=== PATIENT | male | born 1940 | race Caucasian/White ===

== ENCOUNTER 2017-02-21 22:41 | Emergency (ER) | payer OTHER ==
[2017-02-21 22:49] VITALS: BP 135/70; BMI 27.6
--- NOTE | 2017-02-21 23:04 | DR.LACERAT ---
HPI - Time Seen Time seen: 23:00 - Primary Care Physician Primary Care Physician: hemant - HPI Comment HPI Comment: FELL AND HIT HEAD. ACCIDENTAL AFTER SLIPPING ON PIECE OF WOOD. HAVE PARKINSONS DISEASE. TREMORS PRESENT. WALK WITH A CANE. TD UTD. PATIENT TAKES ASA AND TRAMADOL FOR PAIN. - Complaints Chief Complaint Doctors Comments: FELL, LACERATION ABOVE LEFT EYE BROW. NO LOC. HAVE SEVERE HEADACHE. Chief Complaint:: pt fell over some board and hit his forehead laceration appox 5 to 6 cm over lt eye - Reviewed Nurses Notes Reviewed: Yes - Source History Provided: Patient - Mode of Arrival Mode of Arrival: Wheelchair - Timing Onset of Chief Complaint: 02/21/17 - Context Mechanism: Fall - Severity Pain Severity: Moderate Bleeding:: Uncontrolled - Associated Signs and Symptoms Associated Signs and Symptoms: None PMH - PMH Past Medical History: Yes Past Medical History: Diabetes, Hypertension, [place] Past Medical History Comment: parkinsons Past Surgical History: Yes Surgical History: Angioplasty/Stents - Family History History of Family Medical Conditions: Yes Family Medical History: [place], Hypertension - Social History Do you use any recreational Drugs:: No Lives With: Family Lives Where: Home - infectious screening In the last 2 months have you had wt loss of >10#?: NO Have you had fever, night sweats or hemotysis?: No Have you traveled outside the country in the last 6 months?: No Isolation: Standard ROS - Review of Systems Constitutional: No Symptoms Reported Eyes: negative: Eye Pain, Blurred Vision, Discharge, Photophobia ENTM: No Symptoms Reported Respiratoy: Non-Productive Cough Cardiovascular: No Symptoms Reported Gastrointestinal/Abdominal: No Symptoms Reported Genitourinary: No Symptoms Reported Neurological: Headache Musculoskeletal: Other (PAIN LEFT ORBIT AND FORE HEAD.) Integumentary: Other (5CM LACERATION LEFT FOREHEAD/ABOVE EYE BROW.) Hematologic/Lymphatic: Easy Bruising Endocrine: No Symptoms Reported All Other Systems: Reviewed and Negative PE - Vital Signs Vitals: Temperature 98 F Pulse Rate 86 Respiratory Rate 18 Blood Pressure [Left Arm] 131/65 Blood Pressure [Right Arm] 111/63 Blood Pressure 135/70 O2 Sat by Pulse Oximetry 98 - General Limitations: No Limitations General Appearance: Alert - Head Head Exam: Other (LACERATION 5CM ABOVE LEFT EYE BROW.) - Eyes Eye exam: Periorbital Swelling (LT), Periorbital Tenderness (LT) - ENT ENT Exam: Normal Exam, Normal External Ear Exam - Neck Neck Exam: Trachea Midline. negative: Tenderness - Chest Chest Inspection: Symmetric Chest Wall Rise - Respiratory Respiratory Exam: Normal Lung Sounds Bilat Respiratory Exam: Bilateral Rhonchi, Lower Rhonchi - Cardiovascular Cardiovascular Exam: Regular Rate, Normal Rhythm, Normal Heart Sounds - Abdominal Exam Abdominal Exam: Normal Bowel Sounds, Soft. negative: Tenderness - Extremities Extremities Exam: Normal Inspection - Back Back Exam: Paraspinal Tenderness - Neurologic Neurological Exam: Alert, Oriented X3, Other (TREMORS DUE TO PARKINSONS DISEASE. ) - Psychiatric Psychiatric Exam: Anxious - Skin Skin Exam: Erythema Type of Lesion: Laceration (5CM ABOVE LEFT EYE BROW.) Distribution: Face Description: Erythematous MDM - Additional Information Obtained Additional Information Obtained From: Family - Differential Diagnosis Differential Diagnosis: Abrasion, Contusion, Laceration (5CM ABOVE LEFT EYE BROW ), Fracture, Neurovascular Injury Course - Treatment Treatment: SEE ORDERS. LACERATION CLOSE IN ED. - Education/Counseling Education/Counseling: Patient, Family, Education Educated On: Diagnosis, Needs for Follow Up ROR - XRAY XRAY Interpreted by: Radiologist XRAY Findings: REPORT DISCUSS WITH PATIENT AND HIS FAMILY. - Diagnosis Discharge Problem: Laceration Laceration of forehead, left, complicated Qualifiers: Encounter type: initial encounter Qualified Code(s): S01.81XA - Laceration without foreign body of other part of head, initial encounter Facial contusion Qualifiers: Encounter type: initial encounter Qualified Code(s): S00.83XA - Contusion of other part of head, initial encounter Head trauma Qualifiers: Encounter type: initial encounter Qualified Code(s): S09.90XA - Unspecified injury of head, initial encounter - Discharge Plan Disposition: 01 HOME, SELF-CARE Condition: Stable - Follow ups/Referrals Follow ups/Referrals: NFD,None [Primary Care Provider] - 3 days - Instructions Instructions: Laceration Care, Adult, Head Injury, Adult, Facial or Scalp Contusion Additional Instructions: RETURN TO ED IF WORSE. SUTURE OUT IN 10 DAYS.
--- NOTE | 2017-02-21 23:15 | CT ---
CT brain without contrast Indication: Fall with laceration above left eye Comparison: 02/25/2016 Technique: Multiple axial images of the brain were obtained from the skull base to the vertex without administr ation of IV contrast. Coronal and sagittal images were also provided. Radiation dose reduction techniques were performed utilizing adjustment for MA/kVP based on patient body size. Findings: There is a moderate size laceration and hematoma within the left supraorbital frontal scalp. No subj acent fracture or globe injury identified. Stable radiodensities noted within the lateral aspect of the globe just posterior to the lens bilaterally. Moderate generalized cerebral atrophy. No acute intraparenchymal hemorrhage or mass can be identified. No extra-axial fluid collections ar e seen. No alteration in the attenuation of the brain parenchyma can be identified to suggest acute or subacute ischemic change. The ventricular system is symmetric and nondilated. IMPRESSION: 1. Moderate sized 34laceration and hematoma within the left supraorbital scalp without subjacent fr acture. 2. Generalized cerebral atrophy without acute intracranial abnormality. Reported By:
[2017-02-21] MEDS ORDERED: NEOSPORIN OINT ONE (23:54)
[2017-02-22] MEDS: NEOSPORIN OINT TOP ONE
== END 2017-02-22 00:11 | disposition home or self-care (01) ==
LOC: ER 22:41
PROC: 08Q1XZZ Repair Left Eye, External Approach (ICD-10-PCS; principal; 2017-02-21)
DX: S01.81XA Laceration without foreign body of other part of head, initial encounter (principal); S00.83XA Contusion of other part of head, initial encounter; S09.90XA Unspecified injury of head, initial encounter; W01.198A Fall on same level from slipping, tripping and stumbling with subsequent striking against other object, initial encounter; Y92.9 Unspecified place or not applicable
CPT/HCPCS: 12013; 70450; 99282

== ENCOUNTER 2017-12-31 16:40 | Emergency (ER) | payer OTHER, MEDICAID ==
[2017-12-31 16:49] VITALS: BMI 23.1
--- NOTE | 2017-12-31 17:45 | DR.GENAD ---
HPI - PCP Primary Care Physician: CHERYL CHOUDHARY - Complaint/Symptoms Chief Complaint Doctors Comments: Family member is complaining of patient having constipation, diarrhea with abdominal pain and cramping today. states he has been taking increased Lactulose and has been having watery stools. states he has not been eating recently and daughter is worried that he may be dehydrated. [place] He denies chest pain, SOB, vomiting or any recent trauma. Daughter states he has always had problems with is bowels and he takes 300mg colace three times daily and takes lactulose when he feels he is constipated. Patient presently drinking large cup liquids without problems. Patient denies abdominal pain presently. Chief Complaint:: PT C/O CONSTIPATION, DEHYDRATION AND DECREASED APPETTIE. PT'S FAMILY STATES PT HAS BEEN TAKING LACTALOSE FOR THE PAST FEW DAYS AND IS HAVING WATERY DIARRHEA, BUT STILL HAVING PAIN IN HIS RECTUM. - Nurses notes reviewed Nurses Notes Review: Yes - Source History Provided: Patient - Mode of Arrival Mode of Arrival: Ambulatory - Timing Onset of Chief Complaint: 12/31/17 Came on: Gradually - Duration Duration: Constant How lon Duration: Days - Location Location: lower abdominal pain - Severity Severity: Moderate - Modifying Factors Worsens:: nothing Improves:: nothing PMH - PMH Past Medical History: Yes Past Medical History: Diabetes, Hypertension, [place] Past Medical History Comment: PARKINSON, AFIB Past Surgical History: Yes Surgical History: Angioplasty/Stents - Family History History of Family Medical Conditions: Yes Family Medical History: MS, Hypertension - Social History Does any household member use tobacco: No Alcohol Use: None Do you use any recreational Drugs:: No Lives With: Family Lives Where: Home - infectious screening In the last 2 months have you had wt loss of >10#?: NO Have you had fever, night sweats or hemotysis?: No Have you traveled outside the country in the last 6 months?: No Isolation: Standard ROS - Review of Systems Constitutional: No Symptoms Reported, Weakness, Loss of Appetite. negative: See HPI, Chills, Diaphoresis, Fever, Malaise, Irritable, Fatigue, Other Eyes: No Symptoms Reported. negative: See HPI, Eye Pain, Blurred Vision, Tearing, Discharge, Photophobia, Diplopia, Other ENTM: No Symptoms Reported Respiratoy: No Symptoms Reported Cardiovascular: No Symptoms Reported Gastrointestinal/Abdominal: No Symptoms Reported, Abdominal Pain, Constipation, Diarrhea Genitourinary: No Symptoms Reported. negative: See HPI, Discharge, Dysuria, Frequency, Hematuria, Pain, Bleeding, Other Neurological: No Symptoms Reported Musculoskeletal: No Symptoms Reported Integumentary: No Symptoms Reported Hematologic/Lymphatic: No Symptoms Reported. negative: See HPI, Anemia, Blood Clots, Easy Bleeding, Easy Bruising, Swollen Glands, Lymphadenopathy, Other Endocrine: No Symptoms Reported, Decreased Appetite Psychiatric: No Symptoms Reported. negative: See HPI, Anxiety, Depression, Hallucinations, Excessive crying, Suicidal, Other PE - Vital Signs Vitals: Temperature 97.9 F Pulse Rate [Left] 91 Pulse Rate 105 Respiratory Rate 20 Blood Pressure [Left Arm] 143/65 Blood Pressure [Right Arm] 111/63 Blood Pressure 118/92 O2 Sat by Pulse Oximetry 98 - General Limitations: No Limitations General Appearance: Alert, In No Apparent Distress, Cachectic - Head Head Exam: Normal Inspection, Atraumatic, Normocephalic - Eyes Eye exam: Normal Appearance, PERRL, EOMI. negative: Scleral Icterus, Conjunctival Injection, Nystagmus, Miosis, Mydrasis, Periorbital Swelling, Periorbital Tenderness, Other - ENT ENT Exam: Normal Exam, Normal Oropharynx, Normal External Ear Exam, Mucous Membranes Moist, TM's Normal Bilaterally External Ear Exam: Normal External Inspection TM/Canal Exam: Bilateral Normal Nose Exam: Normal Nose Exam Mouth Exam: Normal Inspection. negative: Drooling, Trismus, Lip Swelling, Tongue Elevation, Tongue Swelling, Laceration, Other Throat Exam: Normal Inspection. negative: Tonsillar Erythema, Tonsillomegaly, Tonsillar Exudate, R Peritonsillar Mass, L Peritonsillar Mass, Muffled Voice, Other - Neck Neck Exam: Normal Inspection, Full ROM, Trachea Midline. negative: Tenderness, Meningismus, Lymphadenopathy, Thyromegaly, Other - Chest Chest Inspection: Normal Inspection, Symmetric Chest Wall Rise - Respiratory Respiratory Exam: Normal Lung Sounds Bilat Respiratory Exam: Bilateral Clear to Auscultation - Cardiovascular Cardiovascular Exam: Regular Rate, Normal Rhythm, Normal Heart Sounds, Systolic Murmur. negative: Bradycardia, Tachycardia, Irregular Rhythm, Diastolic Murmur , Rubs, Gallop, Clicks, JVD, +S1, +S2, +S3, +S4, Other - Abdominal Exam Abdominal Exam: Normal Inspection, Normal Bowel Sounds, Soft, Tenderness ( suprapubic tenderness), Dimnished Bowel Sounds Abdominal Tenderness: Suprapubic, Mild - Extremities Extremities Exam: Normal Inspection, Full ROM, Tenderness, Normal Capillary Refill - Back Back Exam: Normal Inspection, Full ROM. negative: Tenderness, (R) CVA Tenderness, (L) CVA Tenderness, Muscle Spasm, Paraspinal Tenderness, Vertebral Tenderness, Rashes, (R) Sciatic Notch Tenderness, (L) Sciatic Notch Tendern, (R ) Straight Leg Raise, (L) Straight Leg Raise, Other - Neurologic Neurological Exam: Alert, Oriented X3, CN II-XII Intact, Reflexes Normal. negative: Normal Gait (gait not tested) - Psychiatric Psychiatric Exam: Normal Affect, Normal Mood - Skin Skin Exam: Warm, Dry, Intact, Normal Color ROR - Labs Reviewed Laboratory Results Reviewed?: Yes (all labs and x-ray results reviewed and discussed with patient) Result Diagrams: 12/31/17 17:50 12/31/17 17:50 Laboratory: WBC 12.7 X10^3/uL (3.6-10.0) H 12/31/17 17:50 RBC 3.91 X10^6/uL (4.7-6.0) L 12/31/17 17:50 Hgb 12.2 g/dL (13.5-18.0) L 12/31/17 17:50 Hct 35.8 % (42.0-54.0) L 12/31/17 17:50 MCV 91.5 fL (80.0-100.0) 12/31/17 17:50 MCH 31.2 pg (27.0-34.0) 12/31/17 17:50 MCHC 34.1 g/dL (33.0-35.0) 12/31/17 17:50 RDW 14.0 % (11.6-16.5) 12/31/17 17:50 Plt Count 205 X10^3/uL (150.0-450.0) 12/31/17 17:50 Plt Count Comment Adequate (ADEQUATE) 12/31/17 17:50 MPV 8.8 fL (7.4-11.0) 12/31/17 17:50 Neut % 90.4 % (42.0-75.0) H 12/31/17 17:50 Lymph % 4.7 % (21.0-51.0) L 12/31/17 17:50 [place] % 4.3 % (0.0-13.0) 12/31/17 17:50 Eos % 0.1 % (0.9-2.9) L 12/31/17 17:50 Baso % 0.5 % (0.2-1.0) 12/31/17 17:50 Neut # 11.5 x10^3/uL (2.2-4.8) H 12/31/17 17:50 Lymph # 0.6 X10^3/uL (1.3-2.9) L 12/31/17 17:50 [place] # 0.5 x10^3/uL (0.3-0.8) 12/31/17 17:50 Eos # 0.0 x10^3/uL (0.0-0.2) 12/31/17 17:50 Baso # 0.1 X10^3/uL (0.0-0.1) 12/31/17 17:50 Absolute Nucleated RBC 0.0 /100WBC 12/31/17 17:50 Total Counted 100 12/31/17 17:50 Neutrophils % (Manual) 86 % (39-76) H 12/31/17 17:50 Band Neutrophils % 1 % (0-10) 12/31/17 17:50 Lymphocytes % (Manual) 7 % (13-43) L 12/31/17 17:50 Monocytes % (Manual) 4 % (4-9) 12/31/17 17:50 Eosinophils % (Manual) 1 % (0-6) 12/31/17 17:50 Atypical Lymphocytes 1 12/31/17 17:50 Plt Morphology Comment Normal (NORMAL) 12/31/17 17:50 RBC Morphology Normal (NORMAL) 12/31/17 17:50 Sodium 139 mmol/L (136-145) 12/31/17 17:50 Corrected Sodium 140 mmol/L (136-145) 12/31/17 17:50 Potassium 3.9 mmol/L (3.5-5.1) 12/31/17 17:50 Chloride 102 mmol/L (98-107) 12/31/17 17:50 Carbon Dioxide 28.2 mmol/L (21-32) 12/31/17 17:50 BUN 14 mg/dL (7-18) 12/31/17 17:50 Creatinine 1.10 mg/dL (0.70-1.30) 12/31/17 17:50 Est GFR (MDRD) Af Amer > 60 (>60) 12/31/17 17:50 Est GFR (MDRD) Non-Af > 60 (>60) 12/31/17 17:50 Glucose 124 mg/dL (65-99) H 12/31/17 17:50 Calcium 9.1 mg/dL (8.5-10.1) 12/31/17 17:50 Corrected Calcium TNP 12/31/17 17:50 Total Bilirubin 0.70 mg/dL (0.2-1.0) 12/31/17 17:50 AST 17 Units/L (15-37) 12/31/17 17:50 ALT 10 Units/L (12-78) L 12/31/17 17:50 Alkaline Phosphatase 102 Units/L (46-116) 12/31/17 17:50 Total Protein 7.5 g/dL (6.4-8.2) 12/31/17 17:50 Albumin 3.6 g/dL (3.4-5.0) 12/31/17 17:50 Globulin 3.9 g/dL (2.5-4.5) 12/31/17 17:50 Albumin/Globulin Ratio 0.9 Ratio (1.1-2.1) L 12/31/17 17:50 Amylase 41 Units/L (25-115) 12/31/17 17:50 Lipase 89 Units/L (73-393) 12/31/17 17:50 - XRAY XRAY Interpreted by: Radiologist (CT abdomen and pelvis: NO acute intra- abdominal pelvic findings are identified. 14mm calcified splenic artery pseudoaneurysm) - EKG Rate: 96 [place]: Normal Rhythm: NSR Block: None Hypertrophy: None ST: Nonsp - Diagnosis Discharge Problem: Hyperglycemia, Diarrhea Abdominal pain Qualifiers: Abdominal location: generalized Qualified Code(s): R10.84 - Generalized abdominal pain - Discharge Plan Disposition: 01 HOME, SELF-CARE Condition: Stable - Follow ups/Referrals Follow ups/Referrals: MDMisc [Primary Care Provider] - 3 days - Instructions Instructions: Abdominal Pain, Adult, [id number], Hyperglycemia, [id number]
[2017-12-31 17:59] LABS: BASOPHILS # (AUTO) 0.1 X10^3/uL (0.0-0.1); BASOPHILS % (AUTO) 0.5 % (0.2-1.0); EOSINOPHILS % (AUTO) 0.1 % (0.9-2.9); HEMATOCRIT 35.8 % (42.0-54.0); HEMOGLOBIN 12.2 g/dL (13.5-18.0); LYMPHOCYTES # (AUTO) 0.6 X10^3/uL (1.3-2.9); LYMPHOCYTES % (AUTO) 4.7 % (21.0-51.0); MEAN CORPUSCULAR HEMOGLOBIN 31.2 pg (27.0-34.0); MEAN CORPUSCULAR HGB CONC 34.1 g/dL (33.0-35.0); MEAN CORPUSCULAR VOLUME 91.5 fL (80.0-100.0); MEAN PLATELET VOLUME 8.8 fL (7.4-11.0); MONOCYTES # (AUTO) 0.5 x10^3/uL (0.3-0.8); MONOCYTES % (AUTO) 4.3 % (0.0-13.0); NEUTROPHILS # (AUTO) 11.5 x10^3/uL (2.2-4.8); NEUTROPHILS % (AUTO) 90.4 % (42.0-75.0); PLATELET COUNT 205 X10^3/uL (150.0-450.0); RED BLOOD COUNT 3.91 X10^6/uL (4.7-6.0); WHITE BLOOD COUNT 12.7 X10^3/uL (3.6-10.0)
[2017-12-31 18:11] LABS: ALANINE AMINOTRANSFERASE 10 Units/L (12-78); ALBUMIN 3.6 g/dL (3.4-5.0); ALKALINE PHOSPHATASE 102 Units/L (46-116); AMYLASE 41 Units/L (25-115); ASPARTATE AMINO TRANSFERASE 17 Units/L (15-37); BLOOD UREA NITROGEN 14 mg/dL (7-18); CALCIUM 9.1 mg/dL (8.5-10.1); CARBON DIOXIDE 28.2 mmol/L (21-32); CHLORIDE 102 mmol/L (98-107); COR NA(FOR HYPERGLY) 140 mmol/L (136-145); LIPASE 89 Units/L (73-393); SODIUM 139 mmol/L (136-145); TOTAL PROTEIN 7.5 g/dL (6.4-8.2); eGFR BLACK RACES > 60 (>60); eGFR NON BLACK RACES > 60 (>60)
[2017-12-31 18:12] LABS: BAND NEUTROPHILS % 1 % (0-10)
[2017-12-31 18:13] LABS: PLATELET MORPHOLOGY COMMENT NORMAL (NORMAL)
--- NOTE | 2017-12-31 18:25 | CT ---
HISTORY: Abdominal pain with diarrhea Study: CT abdomen and pelvis without contrast Comparison: None Technique: Multiple axial images of the abdomen and pelvis were obtained from the lung bases to the pubic symphy sis without the administration of IV contrast. Findings: The visualized portions of the lung bases are unremarkable. The liver, spleen, pancreas, kidneys, an d adrenal glands are unremarkable in their noncontrast CT appearance. The gallbladder is unremarkable in its CT appearance. Atherosclerosis of the aorta is noted there appears to be a small calcified fo r 2 mm splenic artery pseudoaneurysm. No significant mesenteric lymphadenopathy or stranding can be o bserved. No free fluid or free air is seen within the abdomen. No bowel wall thickening or bowel di latation is present. The colon is unremarkable. Specifically, there is no diverticulosis noted with in the sigmoid colon. Appendix is not seen but there are no secondary signs to suggest appendicitis. The urinary bladder is grossly unremarkable. The bony structures are grossly intact. IMPRESSION: 1. No acute intra-abdominal pelvic findings are identified. 2. 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 Reported By:
[2017-12-31 19:05] VITALS: BP 143/65
== END 2017-12-31 19:22 | disposition home or self-care (01) ==
LOC: ER 16:40
DX: R10.84 Generalized abdominal pain (principal); R19.7 Diarrhea, unspecified; R73.9 Hyperglycemia, unspecified
CPT/HCPCS: 36415; 74176; 80053; 82150; 83690; 85025; 93005; 93010; 99283; A4216

== ENCOUNTER 2019-04-06 14:26 | Inpatient (IN) ==
[2019-04-06] MEDS ORDERED: ZOFRAN INJ 4 MG VIAL IVP PRN (15:27)
--- NOTE | 2019-04-06 15:32 | DR.H&P ---
H&P - History & Physical for Day of: H&P Date: 04/06/19 - Chief Complaint Chief Complaint: weakness, dehydration, diarrhea, 8lbs weight loss in one week - History of Present Illness History of Present Illness: 79 WM DIRECT ADMIT PER DR BOB MAGANA OFFICE WITH CO DIFFUSE WEAKNESS, HOME HEALTH NURSE REPORTING 8LBS WEIGHT LOSS IN ONE WEEK, DEHYDRATION WITH HYPOTENSION AND TACHYCARDIA AND DIARRHEA. PT HAS PMH OF PARKINSON'S, CAD, BPH AND HAS BEEN UNDER THE CARE OF [facility]. NURSE REPORTS ABOUT 2 WEEK DECLINE, NOT EATING, DIARRHEA, LOW BP AND DIFFUSE WEAKNESS. DENIES FEVER, NO AMS. PT ADMITTED FOR TREATMENT OF SYMPTOMATIC DEHYRATION. - Past Medical History Past Medical History: Diabetes, Hypertension, [place] Additional Medical History: PARKINSONS - Past Surgical History Surgical History: Angioplasty/Stents - Family History Family Medical History: [place], Hypertension - Medications Home Medications: MS No Known Drug Allergy [No Known Drug Allergy] Allergy (Verified 02/25/16 21:18) - Review of Systems Constitutional: Weakness, Malaise Eyes: No Symptoms Reported ENT: No Symptoms Reported Respiratory: SOB with Excertion Cardiovascular: Edema Gastrointestinal: Diarrhea, Other (WEIGHT LOSS, ANOREXIA) Genitourinary: Other (DECREASED URINE OUTPT) Musculoskeletal: Back Pain, Leg Pain Skin: No Symptoms Reported Neurological: Weakness - Physical Exam Vital Signs: Blood Pressure [Left Arm] 143/65 Blood Pressure [Right Arm] 111/63 Blood Pressure 143/65 Respiratory: RLL Diminished, LLL Diminished Cardiovascular: Tachycardia, Edema : Normal Auscultation: Bowel Sounds: Normal Palpation: Normal Tenderness: Normal Skin: Decreased Turgur Musculoskeletal: Right, Left, Back:Lumbar, Motor Deficit, Sensory Deficit Psychiatric: Depression Mood Description: Calm, Depressed Speech Pattern: Clear, Appropriate - Assessment/Plan (1) Weakness Status: Acute Plan: ADMIT, CT HEAD ON ADMISSION. CE AND EKG, CXR. BLOOD AND URINE CULTURES, STOOL STUDIES. IV HYDRATION, STRICT I & OS. PT AND RESP CONSULT, SUPPLEMENTAL O2 (2) Diarrhea Status: Acute (3) Dehydration with hyponatremia Status: Acute (4) CHF (congestive heart failure) Status: Chronic (5) History of [place] (myocardial infarction) Status: Chronic (6) Hypertension Status: Chronic (7) Parkinson disease Status: Chronic - Allergies Allergies/Adverse Reactions: Allergies Allergy/AdvReac Type Severity Reaction Status Date / Time MS No Known Drug Allergy Allergy Verified 02/25/16 21:18 [No Known Drug Allergy]
[2019-04-06] MEDS ORDERED: NS 1000 ML 1,000 ML IV SCH (16:00)
[2019-04-06 16:27] LABS: BASOPHILS % (AUTO) 0.3 % (0.2-1.0); EOSINOPHILS % (AUTO) 0.2 % (0.9-2.9); HEMATOCRIT 35.3 % (42.0-54.0); HEMOGLOBIN 11.8 g/dL (13.5-18.0); LYMPHOCYTES # (AUTO) 0.7 X10^3/uL (1.3-2.9); MEAN CORPUSCULAR HEMOGLOBIN 31.8 pg (27.0-34.0); MEAN CORPUSCULAR HGB CONC 33.4 g/dL (33.0-35.0); MEAN CORPUSCULAR VOLUME 95.4 fL (80.0-100.0); MEAN PLATELET VOLUME 8.3 fL (7.4-11.0); MONOCYTES # (AUTO) 1.1 x10^3/uL (0.3-0.8); MONOCYTES % (AUTO) 8.1 % (0.0-13.0); NEUTROPHILS # (AUTO) 11.3 x10^3/uL (2.2-4.8); NEUTROPHILS % (AUTO) 86.4 % (42.0-75.0); PLATELET COUNT 236 X10^3/uL (150.0-450.0); RED CELL DISTRIBUTION WIDTH 13.4 % (11.6-16.5); WHITE BLOOD COUNT 13.1 X10^3/uL (3.6-10.0)
--- NOTE | 2019-04-06 16:40 | RAD ---
HISTORY: Shortness of breath Study: Single view chest Comparison:None Findings: Lungs are mildly hyperinflated. No infiltrate, effusion or pneumothorax identified. The cardiac and mediastinal contours are within normal limits. The soft tissues are unremarkable. IMPRESSION: 1. No acute cardiopulmonary abnormality. Reported By:
--- NOTE | 2019-04-06 16:43 | CT ---
HISTORY: Dizziness Study: CT brain without contrast Comparison: 02/21/2017 Technique: Multiple axial images of the brain were obtained without administration of IV contrast. Dose reduction techniques including Automated Exposure Control (AEC) and adjustment of mA and kV were utilized. Findings: There is cerebral volume loss and nonspecific white matter hypoattenuation likely related to moderate to advanced chronic microvascular ischemic changes. No evidence of acute hemorrhage, midline shift, mass effect or abnormal extra-axial fluid collection. The ventricular system is symmetric and nondilated. The soft tissues and osseous structures are unremarkable. The visualized paranasal sinuses are clear. IMPRESSION: 1. Cerebral volume loss and nonspecific white matter changes likely related to moderate to advanced chronic microvascular disease. No acute intracranial abnormality is identified Reported By:
[2019-04-06 16:44] LABS: BLOOD UREA NITROGEN 23 mg/dL (7-18); CALCIUM 9.6 mg/dL (8.5-10.1); CARBON DIOXIDE 27.7 mmol/L (21-32); CHLORIDE 100 mmol/L (98-107); CREATININE 1.23 mg/dL (0.70-1.30); SODIUM 139 mmol/L (136-145); TROPONIN I < 0.02 ng/mL (0-1.5); eGFR NON BLACK RACES > 60 (>60)
[2019-04-06 16:48] LABS: ALANINE AMINOTRANSFERASE 6 Units/L (12-78); ALBUMIN 4.1 g/dL (3.4-5.0); ALKALINE PHOSPHATASE 91 Units/L (46-116); ASPARTATE AMINO TRANSFERASE 13 Units/L (15-37); CKMB % 1.8 % (<4); CREATINE KINASE 111 Units/L (39-308); MAGNESIUM 2.2 mg/dL (1.7-2.9); TOTAL PROTEIN 7.7 g/dL (6.4-8.2)
[2019-04-06] MEDS: PROTONIX INJ 40 MG VIAL IVP SCH (17:00)
[2019-04-06] MEDS: SOLU-Medrol 40 MG VIAL IVP SCH ×2 (17:02→21:27)
[2019-04-06 17:10] LABS: IRON 19 ug/dL (50-175)
[2019-04-06 17:34] VITALS: BMI 19.0
[2019-04-06] MEDS: ROCEPHIN VIAL 1 GRAM IVP SCH (21:26)
[2019-04-06] MEDS: NS 1000 ML 1,000 ML IV SCH (21:27)
[2019-04-06 23:51] LABS: BILIRUBIN,URINE NEGATIVE (NEGATIVE); BLOOD/HEMOGLOBIN,URINE 4+ (NEGATIVE); GLUCOSE, URINE NEGATIVE (NEGATIVE); KETONES,URINE NEGATIVE (NEGATIVE); LEUKOCYTE ESTERASE ,URINE NEGATIVE (NEGATIVE); NITRITES,URINE NEGATIVE (NEGATIVE); PROTEIN,URINE NEGATIVE (NEGATIVE); UROBILINOGEN,URINE NORMAL (NORMAL)
[2019-04-07 00:13] LABS: APPEARANCE,URINE CLEAR (CLEAR); BACTERIA,URINE NEGATIVE /HPF (NEGATIVE); COLOR,URINE YELLOW (YELLOW); SQUAMOUS EPITHELIAL CELL,UR RARE /HPF (NEGATIVE)
[2019-04-07 00:14] LABS: AMORPHOUS SEDIMENT,UR 1+ /HPF (NEGATIVE)
[2019-04-07] MEDS: SOLU-Medrol 40 MG VIAL IVP SCH (05:07)
[2019-04-07 06:23] LABS: BASOPHILS % (AUTO) 0.2 % (0.2-1.0); HEMATOCRIT 33.5 % (42.0-54.0); HEMOGLOBIN 11.3 g/dL (13.5-18.0); LYMPHOCYTES # (AUTO) 0.4 X10^3/uL (1.3-2.9); LYMPHOCYTES % (AUTO) 3.2 % (21.0-51.0); MEAN CORPUSCULAR HGB CONC 33.7 g/dL (33.0-35.0); MEAN CORPUSCULAR VOLUME 94.8 fL (80.0-100.0); MEAN PLATELET VOLUME 8.9 fL (7.4-11.0); MONOCYTES # (AUTO) 0.3 x10^3/uL (0.3-0.8); MONOCYTES % (AUTO) 2.3 % (0.0-13.0); NEUTROPHILS # (AUTO) 12.5 x10^3/uL (2.2-4.8); NEUTROPHILS % (AUTO) 94.3 % (42.0-75.0); PLATELET COUNT 202 X10^3/uL (150.0-450.0); RED BLOOD COUNT 3.54 X10^6/uL (4.7-6.0); RED CELL DISTRIBUTION WIDTH 13.7 % (11.6-16.5); WHITE BLOOD COUNT 13.3 X10^3/uL (3.6-10.0)
[2019-04-07 06:29] LABS: ALBUMIN 3.3 g/dL (3.4-5.0); ALKALINE PHOSPHATASE 75 Units/L (46-116); ASPARTATE AMINO TRANSFERASE 14 Units/L (15-37); BLOOD UREA NITROGEN 17 mg/dL (7-18); CHLORIDE 104 mmol/L (98-107); COR CA(FOR HYPOALB) 9.6 mg/dL (8.5-10.1); COR NA(FOR HYPERGLY) 140 mmol/L (136-145); SODIUM 139 mmol/L (136-145); TOTAL PROTEIN 6.6 g/dL (6.4-8.2); eGFR NON BLACK RACES > 60 (>60)
[2019-04-07 06:41] LABS: ALANINE AMINOTRANSFERASE < 6 Units/L (12-78)
[2019-04-07 06:58] LABS: BAND NEUTROPHILS % 1 % (0-10); PLATELET MORPHOLOGY COMMENT NORMAL (NORMAL)
[2019-04-07] MEDS ORDERED: PHARMACY CONSULT - DOSE _____ XX SCH (07:00)
[2019-04-07] MEDS: PROTONIX INJ 40 MG VIAL IVP SCH (08:30)
[2019-04-07] MEDS: ROCEPHIN VIAL 1 GRAM IVP SCH (08:33)
[2019-04-07] MEDS: NS 1000 ML 1,000 ML IV SCH ×2 (08:33→10:15)
[2019-04-07] MEDS ORDERED: DEXFERRUM or INFED 25 MG in NS 100 ML IV 100 ML IV NR (10:00)
[2019-04-07] MEDS ORDERED: DEXFERRUM or INFED 975 MG in NS 500 ML IV 500 ML IV NR (11:00)
[2019-04-07] MEDS ORDERED: AMANTADINE HCL 100 MG CAP PO SCH (11:00)
[2019-04-07] MEDS ORDERED: NS 500 ML IV 0 ML ONE (11:26)
[2019-04-07] MEDS: FLAGYL IV PREMIX 500 MG BAG 500 MG/100 ML BAG IV SCH ×3 (11:30→20:40)
[2019-04-07] MEDS: BUTT CREAM (COMPOUND) TOP PRN ×3 (11:31→21:40)
[2019-04-07] MEDS: NEURONTIN CAP 300 MG PO SCH ×3 (11:34→22:00)
[2019-04-07] MEDS: ASPIRIN 81 MG CHEWTAB PO SCH (11:34)
[2019-04-07 11:35] LABS: STOOL FOR WBC POSITIVE (NEGATIVE)
[2019-04-07] MEDS: SINEMET (PLAIN) 25/250 MG PO SCH ×3 (11:35→22:00)
[2019-04-07] MEDS: PATIENT'S HOME MEDICATION PO SCH ×5 (11:36→20:44)
[2019-04-07] MEDS ORDERED: NS 500 ML IV 500 ML IV SCH (12:00)
[2019-04-07] MEDS: SINEMET CR 50/200 MG PO SCH (20:42)
[2019-04-07] MEDS: CIPRO IV 400 MG PREMIX* 400 MG/200 ML IV.SOLN. IV SCH (22:00)
[2019-04-08] MEDS: NS 1000 ML 1,000 ML IV SCH ×2 (02:31→15:30)
[2019-04-08] MEDS: FLAGYL IV PREMIX 500 MG BAG 500 MG/100 ML BAG IV SCH ×4 (02:31→20:46)
[2019-04-08] MEDS ORDERED: ULTRAM ONE (04:28)
[2019-04-08] MEDS: ULTRAM PO PRN (04:33)
[2019-04-08] MEDS: NEURONTIN CAP 300 MG PO SCH ×3 (05:00→21:32)
[2019-04-08] MEDS: SINEMET (PLAIN) 25/250 MG PO SCH ×3 (05:47→21:32)
[2019-04-08 06:11] LABS: BASOPHILS % (AUTO) 0.3 % (0.2-1.0); EOSINOPHILS # (AUTO) 0.3 x10^3/uL (0.0-0.2); EOSINOPHILS % (AUTO) 2.5 % (0.9-2.9); HEMATOCRIT 31.4 % (42.0-54.0); HEMOGLOBIN 10.5 g/dL (13.5-18.0); LYMPHOCYTES # (AUTO) 1.1 X10^3/uL (1.3-2.9); MEAN CORPUSCULAR HEMOGLOBIN 31.9 pg (27.0-34.0); MEAN CORPUSCULAR HGB CONC 33.4 g/dL (33.0-35.0); MEAN CORPUSCULAR VOLUME 95.6 fL (80.0-100.0); MEAN PLATELET VOLUME 8.9 fL (7.4-11.0); MONOCYTES # (AUTO) 0.9 x10^3/uL (0.3-0.8); MONOCYTES % (AUTO) 8.1 % (0.0-13.0); NEUTROPHILS % (AUTO) 79.1 % (42.0-75.0); PLATELET COUNT 189 X10^3/uL (150.0-450.0); RED BLOOD COUNT 3.29 X10^6/uL (4.7-6.0); RED CELL DISTRIBUTION WIDTH 13.7 % (11.6-16.5); WHITE BLOOD COUNT 11.4 X10^3/uL (3.6-10.0)
[2019-04-08 06:32] LABS: ALANINE AMINOTRANSFERASE < 6 Units/L (12-78); ALBUMIN 2.7 g/dL (3.4-5.0); ALKALINE PHOSPHATASE 80 Units/L (46-116); ASPARTATE AMINO TRANSFERASE 13 Units/L (15-37); BLOOD UREA NITROGEN 14 mg/dL (7-18); CALCIUM 8.3 mg/dL (8.5-10.1); CARBON DIOXIDE 26.6 mmol/L (21-32); CHLORIDE 104 mmol/L (98-107); COR CA(FOR HYPOALB) 9.3 mg/dL (8.5-10.1); COR NA(FOR HYPERGLY) 137 mmol/L (136-145); CREATININE 0.79 mg/dL (0.70-1.30); SODIUM 137 mmol/L (136-145); TOTAL PROTEIN 5.7 g/dL (6.4-8.2); eGFR NON BLACK RACES > 60 (>60)
[2019-04-08] MEDS: ASPIRIN 81 MG CHEWTAB PO SCH (08:30)
[2019-04-08] MEDS: PROTONIX INJ 40 MG VIAL IVP SCH (08:31)
[2019-04-08] MEDS: ZANTAC PO SCH (08:31)
[2019-04-08] MEDS: PATIENT'S HOME MEDICATION PO SCH ×6 (08:31→20:48)
[2019-04-08] MEDS: CIPRO IV 400 MG PREMIX* 400 MG/200 ML IV.SOLN. IV SCH ×2 (09:53→21:29)
--- NOTE | 2019-04-08 12:12 | RAD ---
HISTORY: Constipation, abdominal cramping Study: KUB Comparison: CT scan of the abdomen and pelvis done 12/31/2017. Findings: A bladder catheter is present. There is a large amount of stool present throughout the colon. A 7.85 cm rectal fecal impaction is present. There is gaseous distention of small bowel present also. No bowel obstruction is seen. Lung bases are clear. No opaque stone is seen. Osseous structures are intact. IMPRESSION: Large amount of stool present throughout the colon. A 7.85 cm rectal fecal impaction is seen. No bowel obstruction is seen. Reported By:
[2019-04-08] MEDS: MILK OF MAGNESIA PO SCH (18:15)
[2019-04-08] MEDS: SINEMET CR 50/200 MG PO SCH (20:49)
[2019-04-09] MEDS: FLAGYL IV PREMIX 500 MG BAG 500 MG/100 ML BAG IV SCH ×4 (03:10→21:01)
[2019-04-09] MEDS: NS 1000 ML 1,000 ML IV SCH ×2 (05:38→18:02)
[2019-04-09] MEDS: NEURONTIN CAP 300 MG PO SCH ×3 (05:59→21:02)
[2019-04-09] MEDS: SINEMET (PLAIN) 25/250 MG PO SCH ×3 (06:00→21:01)
[2019-04-09 06:08] LABS: BASOPHILS % (AUTO) 0.5 % (0.2-1.0); EOSINOPHILS # (AUTO) 0.4 x10^3/uL (0.0-0.2); EOSINOPHILS % (AUTO) 5.8 % (0.9-2.9); HEMATOCRIT 33.2 % (42.0-54.0); HEMOGLOBIN 11.2 g/dL (13.5-18.0); MEAN CORPUSCULAR HEMOGLOBIN 31.9 pg (27.0-34.0); MEAN CORPUSCULAR HGB CONC 33.6 g/dL (33.0-35.0); MEAN CORPUSCULAR VOLUME 94.9 fL (80.0-100.0); MEAN PLATELET VOLUME 8.5 fL (7.4-11.0); MONOCYTES # (AUTO) 0.7 x10^3/uL (0.3-0.8); MONOCYTES % (AUTO) 10.7 % (0.0-13.0); NEUTROPHILS # (AUTO) 4.1 x10^3/uL (2.2-4.8); PLATELET COUNT 206 X10^3/uL (150.0-450.0); RED CELL DISTRIBUTION WIDTH 13.9 % (11.6-16.5); WHITE BLOOD COUNT 6.2 X10^3/uL (3.6-10.0)
[2019-04-09 06:22] LABS: ALANINE AMINOTRANSFERASE < 6 Units/L (12-78); ALBUMIN 2.7 g/dL (3.4-5.0); ALKALINE PHOSPHATASE 79 Units/L (46-116); BLOOD UREA NITROGEN 9 mg/dL (7-18); CALCIUM 8.7 mg/dL (8.5-10.1); CARBON DIOXIDE 32.2 mmol/L (21-32); CHLORIDE 104 mmol/L (98-107); COR CA(FOR HYPOALB) 9.7 mg/dL (8.5-10.1); CREATININE 0.82 mg/dL (0.70-1.30); SODIUM 141 mmol/L (136-145); TOTAL PROTEIN 5.8 g/dL (6.4-8.2); eGFR NON BLACK RACES > 60 (>60)
--- NOTE | 2019-04-09 06:33 | RAD ---
HISTORY: Abdominal pain Study: KUB Comparison: 04/08/2019 Findings: The abdominal gas pattern is nonspecific and nonobstructive. There is a large amount of stool throughout the colon. The previously noted fecal impaction is not well demonstrated. There is a rectal tube in place. No abnormal masses or abnormal calcifications are identified. The regional skeleton is intact. IMPRESSION: Large amount of stool throughout the colon suggestive of constipation The previously noted fecal impaction is no longer identified. Reported By:
[2019-04-09 06:42] LABS: ASPARTATE AMINO TRANSFERASE 14 Units/L (15-37)
[2019-04-09] MEDS: MILK OF MAGNESIA PO SCH (08:52)
[2019-04-09] MEDS: CIPRO IV 400 MG PREMIX* 400 MG/200 ML IV.SOLN. IV SCH ×2 (08:52→21:01)
[2019-04-09] MEDS: ASPIRIN 81 MG CHEWTAB PO SCH (08:52)
[2019-04-09] MEDS: COLACE CAP 100 MG PO PRN ×2 (08:52→21:01)
[2019-04-09] MEDS: PROTONIX INJ 40 MG VIAL IVP SCH (08:52)
[2019-04-09] MEDS: ZANTAC PO SCH (08:53)
[2019-04-09] MEDS: PATIENT'S HOME MEDICATION PO SCH ×6 (09:11→21:01)
[2019-04-09] MEDS ORDERED: PHARMACY CONSULT - DOSE _____ XX SCH (10:00)
[2019-04-09] MEDS: LOVENOX INJ 40 MG SYR SC SCH (11:03)
[2019-04-09] MEDS: SINEMET CR 50/200 MG PO SCH (21:02)
[2019-04-10] MEDS: ULTRAM PO PRN (01:55)
[2019-04-10] MEDS: FLAGYL IV PREMIX 500 MG BAG 500 MG/100 ML BAG IV SCH ×4 (02:11→20:42)
[2019-04-10] MEDS: NEURONTIN CAP 300 MG PO SCH ×3 (05:33→21:28)
[2019-04-10] MEDS: SINEMET (PLAIN) 25/250 MG PO SCH ×3 (05:34→21:28)
[2019-04-10 05:45] LABS: BASOPHILS % (AUTO) 0.5 % (0.2-1.0); EOSINOPHILS # (AUTO) 0.3 x10^3/uL (0.0-0.2); EOSINOPHILS % (AUTO) 3.7 % (0.9-2.9); HEMATOCRIT 34.3 % (42.0-54.0); HEMOGLOBIN 11.4 g/dL (13.5-18.0); LYMPHOCYTES # (AUTO) 0.7 X10^3/uL (1.3-2.9); MEAN CORPUSCULAR HEMOGLOBIN 32.2 pg (27.0-34.0); MEAN CORPUSCULAR HGB CONC 33.3 g/dL (33.0-35.0); MEAN CORPUSCULAR VOLUME 96.7 fL (80.0-100.0); MEAN PLATELET VOLUME 8.8 fL (7.4-11.0); MONOCYTES # (AUTO) 0.8 x10^3/uL (0.3-0.8); MONOCYTES % (AUTO) 10.6 % (0.0-13.0); NEUTROPHILS # (AUTO) 5.5 x10^3/uL (2.2-4.8); NEUTROPHILS % (AUTO) 75.2 % (42.0-75.0); PLATELET COUNT 222 X10^3/uL (150.0-450.0); RED BLOOD COUNT 3.55 X10^6/uL (4.7-6.0); RED CELL DISTRIBUTION WIDTH 13.8 % (11.6-16.5); WHITE BLOOD COUNT 7.3 X10^3/uL (3.6-10.0)
[2019-04-10 05:58] LABS: ALANINE AMINOTRANSFERASE < 6 Units/L (12-78); ALBUMIN 2.7 g/dL (3.4-5.0); ALKALINE PHOSPHATASE 81 Units/L (46-116); ASPARTATE AMINO TRANSFERASE 11 Units/L (15-37); BLOOD UREA NITROGEN 10 mg/dL (7-18); CALCIUM 8.5 mg/dL (8.5-10.1); CARBON DIOXIDE 30.1 mmol/L (21-32); CHLORIDE 102 mmol/L (98-107); COR CA(FOR HYPOALB) 9.5 mg/dL (8.5-10.1); COR NA(FOR HYPERGLY) 137 mmol/L (136-145); CREATININE 0.75 mg/dL (0.70-1.30); SODIUM 137 mmol/L (136-145); TOTAL PROTEIN 5.7 g/dL (6.4-8.2); eGFR NON BLACK RACES > 60 (>60)
[2019-04-10] MEDS: CIPRO IV 400 MG PREMIX* 400 MG/200 ML IV.SOLN. IV SCH ×2 (08:58→20:42)
[2019-04-10] MEDS: ASPIRIN 81 MG CHEWTAB PO SCH (08:58)
[2019-04-10] MEDS: PROTONIX INJ 40 MG VIAL IVP SCH (08:59)
[2019-04-10] MEDS: LOVENOX INJ 40 MG SYR SC SCH (08:59)
[2019-04-10] MEDS: ZANTAC PO SCH (09:00)
[2019-04-10] MEDS: MILK OF MAGNESIA PO SCH (09:01)
[2019-04-10] MEDS: NS 1000 ML 1,000 ML IV SCH ×3 (09:13→21:28)
[2019-04-10] MEDS: PATIENT'S HOME MEDICATION PO SCH ×6 (09:13→20:44)
--- NOTE | 2019-04-10 12:43 | PCM.PROG ---
Progress Note - Progress Note for Day of Date of Exam: 04/10/19 - Subjective Subjective: Mr. Gutierrez is a 79-year-old white male admitted on 04/06/19, with perfuse diarrhea, hypotension, and tachycardia. The patient was noted to have a positive C. diff colitis and H. Pylori. He is on PPI therapy, gentle IV hydration, Cipro, and Flagyl. The patient does appear to feel a little bit better this morning. Does continue to feel weak. Discussed rehab placement and patient is agreeable. - Past Medical Family Social History Past Med/Fam/Surg Hx: No changes since H&P Allergies: Allergies No Known Drug Allergies Allergy (Verified 04/06/19 17:06) - Review of Systems ROS: No change since H&P - Vital Signs and I&O's Vital Signs: Temperature 97.9 F Pulse Rate [Apical] 90 Pulse Rate 86 Respiratory Rate 16 Blood Pressure [Left Arm] 121/69 Blood Pressure [Right Arm] 106/58 Blood Pressure 125/69 O2 Sat by Pulse Oximetry 99 Intake and Output: Intake & Output 04/07/19 04/08/19 04/09/19 04/10/19 23:59 23:59 23:59 23:59 Intake Total 2838 / 2838 3230 / 3230 3790 / 3790 566 / 566 Output Total 1400 / 1400 3700 / 3700 3525 / 3525 1000 / 1000 Balance 1438 / 1438 -470 / -470 265 / 265 -434 / -434 - Physical Exam Oriented: Normal Eyes: Normal Ear: Normal Nose: Normal Throat: Normal Respiratory: Normal Cardiovascular: Normal, Tachycardia, Edema : Normal Auscultation: Bowel Sounds: Normal Palpation: Normal Tenderness: Normal Skin: Decreased [place] Musculoskeletal: Right, Left, Back:Lumbar, Motor Deficit, Sensory Deficit Psychiatric: Depression Mood Description: Calm Speech Pattern: Clear, Appropriate - Laboratory and Diagnostics Result Diagrams: 04/10/19 05:19 04/10/19 05: Labs: 04/07/19 10:47 Stool Stool Culture - Final 04/07/19 10:47 Stool - Final 04/06/19 23:22 Urine,Clean Catch Urine Culture - Final 04/06/19 16:15 Blood Blood Culture - Preliminary 04/06/19 16:15 Blood Blood Culture - Preliminary Laboratory WBC 7.3 X10^3/uL (3.6-10.0) 04/10/19 05:19 RBC 3.55 X10^6/uL (4.7-6.0) L 04/10/19 05:19 Hgb 11.4 g/dL (13.5-18.0) L 04/10/19 05:19 Hct 34.3 % (42.0-54.0) L 04/10/19 05:19 MCV 96.7 fL (80.0-100.0) 04/10/19 05:19 MCH 32.2 pg (27.0-34.0) 04/10/19 05:19 MCHC 33.3 g/dL (33.0-35.0) 04/10/19 05:19 RDW 13.8 % (11.6-16.5) 04/10/19 05:19 Plt Count 222 X10^3/uL (150.0-450.0) 04/10/19 05:19 Plt Count Comment Adequate (ADEQUATE) 04/07/19 05:34 MPV 8.8 fL (7.4-11.0) 04/10/19 05:19 Neut % (Auto) 75.2 % (42.0-75.0) H 04/10/19 05:19 Lymph % (Auto) 10.0 % (21.0-51.0) L 04/10/19 05:19 [place] % (Auto) 10.6 % (0.0-13.0) 04/10/19 05:19 Eos % (Auto) 3.7 % (0.9-2.9) H 04/10/19 05:19 Baso % (Auto) 0.5 % (0.2-1.0) 04/10/19 05:19 Neut # (Auto) 5.5 x10^3/uL (2.2-4.8) H 04/10/19 05:19 Lymph # (Auto) 0.7 X10^3/uL (1.3-2.9) L 04/10/19 05:19 [place] # (Auto) 0.8 x10^3/uL (0.3-0.8) 04/10/19 05:19 Eos # (Auto) 0.3 x10^3/uL (0.0-0.2) H 04/10/19 05:19 Baso # (Auto) 0.0 X10^3/uL (0.0-0.1) 04/10/19 05:19 Absolute Nucleated RBC 0.0 /100WBC 04/10/19 05:19 Total Counted 100 04/07/19 05:34 Neutrophils % (Manual) 90 % (39-76) H 04/07/19 05:34 Band Neutrophils % 1 % (0-10) 04/07/19 05:34 Lymphocytes % (Manual) 4 % (13-43) L 04/07/19 05:34 Monocytes % (Manual) 5 % (4-9) 04/07/19 05:34 Plt Morphology Comment Normal (NORMAL) 04/07/19 05:34 RBC Morphology Normal (NORMAL) 04/07/19 05:34 Sodium 137 mmol/L (136-145) 04/10/19 05:19 Corrected Sodium 137 mmol/L (136-145) 04/10/19 05:19 Potassium 4.2 mmol/L (3.5-5.1) 04/10/19 05:19 Chloride 102 mmol/L (98-107) 04/10/19 05:19 Carbon Dioxide 30.1 mmol/L (21-32) 04/10/19 05:19 BUN 10 mg/dL (7-18) 04/10/19 05:19 Creatinine 0.75 mg/dL (0.70-1.30) 04/10/19 05:19 Est GFR (MDRD) Af Amer > 60 (>60) 04/10/19 05:19 Est GFR (MDRD) Non-Af > 60 (>60) 04/10/19 05:19 Glucose 111 mg/dL (65-99) H 04/10/19 05:19 Calcium 8.5 mg/dL (8.5-10.1) 04/10/19 05:19 Corrected Calcium 9.5 mg/dL (8.5-10.1) 04/10/19 05:19 Magnesium 2.2 mg/dL (1.7-2.9) 04/06/19 16:15 Iron 19 ug/dL (50-175) L 04/06/19 16:15 Transferrin 185 mg/dL (202-364) L 04/06/19 16:15 Ferritin 538 ng/mL (26-388) H 04/06/19 16:15 Total Bilirubin 0.50 mg/dL (0.2-1.0) 04/10/19 05:19 AST 11 Units/L (15-37) L 04/10/19 05:19 ALT < 6 Units/L (12-78) L 04/10/19 05:19 Alkaline Phosphatase 81 Units/L (46-116) 04/10/19 05:19 Creatine Kinase 111 Units/L (39-308) 04/06/19 16:15 CK-MB (CK-2) 2.0 ng/mL (0-4.0) 04/06/19 16:15 CK/CKMB % Calc 1.8 % (<4) 04/06/19 16:15 Troponin I < 0.02 ng/mL (0-1.5) 04/06/19 16:15 Total Protein 5.7 g/dL (6.4-8.2) L 04/10/19 05:19 Albumin 2.7 g/dL (3.4-5.0) L 04/10/19 05:19 Globulin 3.0 g/dL (2.5-4.5) 04/10/19 05:19 Albumin/Globulin Ratio 0.9 Ratio (1.1-2.1) L 04/10/19 05:19 Vitamin B12 390 pg/mL (193-986) 04/06/19 16:15 Folate > 20.0 ng/mL (>8.6) 04/06/19 16:15 Specimen Type Catherized urine 04/06/19 23:26 Urine Color Yellow (YELLOW) 04/06/19 23:26 Urine Appearance Clear (CLEAR) 04/06/19 23: Urine pH 6.0 (5.0 - 8.0) 04/06/19 23: Ur Specific [place] 1.005 (1.000-1.030) 04/06/19 23:26 Urine Protein Negative (NEGATIVE) 04/06/19 23: Urine Glucose (UA) Negative (NEGATIVE) 04/06/19 23: Urine Ketones Negative (NEGATIVE) 04/06/19 23: Urine Occult Blood 4+ (NEGATIVE) 04/06/19 23: Urine Nitrite Negative (NEGATIVE) 04/06/19 23:26 Urine Bilirubin Negative (NEGATIVE) 04/06/19 23:26 Urine Urobilinogen Normal (NORMAL) 04/06/19 23:26 Ur Leukocyte Esterase Negative (NEGATIVE) 04/06/19 23:26 Urine RBC 3-5 /HPF (NONE SEEN) 04/06/19 23:26 Urine WBC None seen /HPF (NONE SEEN) 04/06/19 23:26 Ur Squamous Epith Cells Rare /HPF (NEGATIVE) 04/06/19 23:26 Amorphous Sediment 1+ /HPF (NEGATIVE) 04/06/19 23:26 Urine Bacteria Negative /HPF (NEGATIVE) 04/06/19 23:26 Ur Culture Indicated? Yes/culture set up 04/06/19 23:26 Stool Description 5g,brown,unformed 04/07/19 10:47 Stl Occult Blood (IFOB) Positive (NEGATIVE) A 04/07/19 10:47 Stool for White Cells Positive (NEGATIVE) A 04/07/19 10:47 Stl C. diff Tox B Gene Positive (NEGATIVE) A 04/07/19 10:47 Stl C. diff 027-NAP1-BI Negative (NEGATIVE) 04/07/19 10:47 Stool H. pylori Ag Positive (NEGATIVE) A 04/07/19 10:47 C. difficile Toxin A&B Negative (NEGATIVE) 04/07/19 10:47 Radiology Reviewed: Yes EKG Reviewed: Yes - Plan (1) C. difficile enteritis Status: Acute Plan: Continue antibiotics. Monitor Labs. (2) Weakness Status: Acute Plan: Continue physical therapy. Consult for rehab placement/swingbed. (3) Parkinson disease Status: Chronic Plan: Continue present meds. (4) Diarrhea Status: Acute Plan: Monitor Output. Continue treatment for C Diff.
[2019-04-10] MEDS: SINEMET CR 50/200 MG PO SCH (20:43)
[2019-04-11] MEDS: FLAGYL IV PREMIX 500 MG BAG 500 MG/100 ML BAG IV SCH ×4 (03:05→21:18)
[2019-04-11] MEDS: NEURONTIN CAP 300 MG PO SCH ×3 (05:53→21:19)
[2019-04-11] MEDS: SINEMET (PLAIN) 25/250 MG PO SCH ×3 (05:54→21:19)
[2019-04-11 06:05] LABS: BASOPHILS % (AUTO) 0.5 % (0.2-1.0); EOSINOPHILS # (AUTO) 0.4 x10^3/uL (0.0-0.2); EOSINOPHILS % (AUTO) 7.9 % (0.9-2.9); HEMATOCRIT 34.4 % (42.0-54.0); HEMOGLOBIN 11.7 g/dL (13.5-18.0); LYMPHOCYTES # (AUTO) 0.9 X10^3/uL (1.3-2.9); LYMPHOCYTES % (AUTO) 16.8 % (21.0-51.0); MEAN CORPUSCULAR HEMOGLOBIN 32.7 pg (27.0-34.0); MEAN CORPUSCULAR HGB CONC 33.9 g/dL (33.0-35.0); MEAN CORPUSCULAR VOLUME 96.4 fL (80.0-100.0); MEAN PLATELET VOLUME 8.8 fL (7.4-11.0); MONOCYTES # (AUTO) 0.6 x10^3/uL (0.3-0.8); MONOCYTES % (AUTO) 10.9 % (0.0-13.0); NEUTROPHILS # (AUTO) 3.4 x10^3/uL (2.2-4.8); NEUTROPHILS % (AUTO) 63.9 % (42.0-75.0); PLATELET COUNT 237 X10^3/uL (150.0-450.0); RED BLOOD COUNT 3.57 X10^6/uL (4.7-6.0); WHITE BLOOD COUNT 5.3 X10^3/uL (3.6-10.0)
[2019-04-11 06:27] LABS: ALANINE AMINOTRANSFERASE < 6 Units/L (12-78); ALBUMIN 2.7 g/dL (3.4-5.0); ALKALINE PHOSPHATASE 84 Units/L (46-116); ASPARTATE AMINO TRANSFERASE 19 Units/L (15-37); BLOOD UREA NITROGEN 13 mg/dL (7-18); CALCIUM 8.7 mg/dL (8.5-10.1); CARBON DIOXIDE 31.4 mmol/L (21-32); CHLORIDE 104 mmol/L (98-107); COR CA(FOR HYPOALB) 9.7 mg/dL (8.5-10.1); CREATININE 0.82 mg/dL (0.70-1.30); SODIUM 139 mmol/L (136-145); TOTAL PROTEIN 5.8 g/dL (6.4-8.2); eGFR NON BLACK RACES > 60 (>60)
[2019-04-11] MEDS: LOVENOX INJ 40 MG SYR SC SCH (09:37)
[2019-04-11] MEDS: ASPIRIN 81 MG CHEWTAB PO SCH (09:38)
[2019-04-11] MEDS: PROTONIX INJ 40 MG VIAL IVP SCH (09:38)
[2019-04-11] MEDS: ZANTAC PO SCH (09:39)
[2019-04-11] MEDS: MILK OF MAGNESIA PO SCH (09:40)
[2019-04-11] MEDS: CIPRO IV 400 MG PREMIX* 400 MG/200 ML IV.SOLN. IV SCH ×2 (09:40→21:18)
[2019-04-11] MEDS: PATIENT'S HOME MEDICATION PO SCH ×6 (09:41→21:20)
--- NOTE | 2019-04-11 11:41 | PCM.PROG ---
Progress Note - Progress Note for Day of Date of Exam: 04/11/19 - Subjective Subjective: Mr. Gutierrez is a 79-year-old white male admitted on 04/06/19, with perfuse diarrhea, hypotension, and tachycardia. The patient was noted to have a positive C. diff colitis and H. Pylori. He is on PPI therapy, gentle IV hydration, Cipro, and Flagyl. The patient does appear to feel a little bit better this morning. Does continue to feel weak. States he slept all day yesterday. States that he did not sleep much last night. Is agreeable for rehab placement. Denies any other complaints. - Past Medical Family Social History Past Med/Fam/Surg Hx: No changes since H&P Allergies: Allergies No Known Drug Allergies Allergy (Verified 04/06/19 17:06) - Review of Systems ROS: No change since H&P - Vital Signs and I&O's Vital Signs: Temperature 97.9 F Pulse Rate [Apical] 90 Pulse Rate 87 Respiratory Rate 16 Blood Pressure [Left Arm] 121/69 Blood Pressure [Right Arm] 106/58 Blood Pressure 118/62 O2 Sat by Pulse Oximetry 100 Intake and Output: Intake & Output 04/08/19 04/09/19 04/10/19 04/11/19 23:59 23:59 23:59 23:59 Intake Total 3230 / 3230 3790 / 3790 2512 / 2512 487 / 487 Output Total 3700 / 3700 3525 / 3525 4275 / 4275 650 / 650 Balance -470 / -470 265 / 265 -1763 / -1763 -163 / -163 - Physical Exam Oriented: Normal Eyes: Normal Ear: Normal Nose: Normal Throat: Normal Respiratory: Normal Cardiovascular: Normal, Tachycardia, Edema : Normal Auscultation: Bowel Sounds: Normal Palpation: Normal Tenderness: Normal Skin: Normal Musculoskeletal: Right, Left, Back:Lumbar, Motor Deficit, Sensory Deficit Psychiatric: Depression Mood Description: Calm Affect: Quiet Speech Pattern: Clear, Appropriate - Laboratory and Diagnostics Result Diagrams: 04/11/19 05:15 04/11/19 05:15 Labs: 04/07/19 10:47 Stool Stool Culture - Final 04/07/19 10:47 Stool - Final 04/06/19 23:22 Urine,Clean Catch Urine Culture - Final 04/06/19 16:15 Blood Blood Culture - Preliminary 04/06/19 16:15 Blood Blood Culture - Preliminary Laboratory WBC 5.3 X10^3/uL (3.6-10.0) 04/11/19 05:15 RBC 3.57 X10^6/uL (4.7-6.0) L 04/11/19 05:15 Hgb 11.7 g/dL (13.5-18.0) L 04/11/19 05:15 Hct 34.4 % (42.0-54.0) L 04/11/19 05:15 MCV 96.4 fL (80.0-100.0) 04/11/19 05:15 MCH 32.7 pg (27.0-34.0) 04/11/19 05:15 MCHC 33.9 g/dL (33.0-35.0) 04/11/19 05:15 RDW 14.0 % (11.6-16.5) 04/11/19 05:15 Plt Count 237 X10^3/uL (150.0-450.0) 04/11/19 05:15 Plt Count Comment Adequate (ADEQUATE) 04/07/19 05:34 MPV 8.8 fL (7.4-11.0) 04/11/19 05:15 Neut % (Auto) 63.9 % (42.0-75.0) 04/11/19 05:15 Lymph % (Auto) 16.8 % (21.0-51.0) L 04/11/19 05:15 [place] % (Auto) 10.9 % (0.0-13.0) 04/11/19 05:15 Eos % (Auto) 7.9 % (0.9-2.9) H 04/11/19 05:15 Baso % (Auto) 0.5 % (0.2-1.0) 04/11/19 05:15 Neut # (Auto) 3.4 x10^3/uL (2.2-4.8) 04/11/19 05:15 Lymph # (Auto) 0.9 X10^3/uL (1.3-2.9) L 04/11/19 05:15 [place] # (Auto) 0.6 x10^3/uL (0.3-0.8) 04/11/19 05:15 Eos # (Auto) 0.4 x10^3/uL (0.0-0.2) H 04/11/19 05:15 Baso # (Auto) 0.0 X10^3/uL (0.0-0.1) 04/11/19 05:15 Absolute Nucleated RBC 0.2 /100WBC 04/11/19 05:15 Total Counted 100 04/07/19 05:34 Neutrophils % (Manual) 90 % (39-76) H 04/07/19 05:34 Band Neutrophils % 1 % (0-10) 04/07/19 05:34 Lymphocytes % (Manual) 4 % (13-43) L 04/07/19 05:34 Monocytes % (Manual) 5 % (4-9) 04/07/19 05:34 Plt Morphology Comment Normal (NORMAL) 04/07/19 05:34 RBC Morphology Normal (NORMAL) 04/07/19 05:34 Sodium 139 mmol/L (136-145) 04/11/19 05:15 Corrected Sodium TNP 04/11/19 05:15 Potassium 4.4 mmol/L (3.5-5.1) 04/11/19 05:15 Chloride 104 mmol/L (98-107) 04/11/19 05:15 Carbon Dioxide 31.4 mmol/L (21-32) 04/11/19 05:15 BUN 13 mg/dL (7-18) 04/11/19 05:15 Creatinine 0.82 mg/dL (0.70-1.30) 04/11/19 05:15 Est GFR (MDRD) Af Amer > 60 (>60) 04/11/19 05:15 Est GFR (MDRD) Non-Af > 60 (>60) 04/11/19 05:15 Glucose 104 mg/dL (65-99) H 04/11/19 05:15 Calcium 8.7 mg/dL (8.5-10.1) 04/11/19 05:15 Corrected Calcium 9.7 mg/dL (8.5-10.1) 04/11/19 05:15 Magnesium 2.2 mg/dL (1.7-2.9) 04/06/19 16:15 Iron 19 ug/dL (50-175) L 04/06/19 16:15 Transferrin 185 mg/dL (202-364) L 04/06/19 16:15 Ferritin 538 ng/mL (26-388) H 04/06/19 16:15 Total Bilirubin 0.40 mg/dL (0.2-1.0) 04/11/19 05:15 AST 19 Units/L (15-37) 04/11/19 05:15 ALT < 6 Units/L (12-78) L 04/11/19 05:15 Alkaline Phosphatase 84 Units/L (46-116) 04/11/19 05:15 Creatine Kinase 111 Units/L (39-308) 04/06/19 16:15 CK-MB (CK-2) 2.0 ng/mL (0-4.0) 04/06/19 16:15 CK/CKMB % Calc 1.8 % (<4) 04/06/19 16:15 Troponin I < 0.02 ng/mL (0-1.5) 04/06/19 16:15 Total Protein 5.8 g/dL (6.4-8.2) L 04/11/19 05:15 Albumin 2.7 g/dL (3.4-5.0) L 04/11/19 05:15 Globulin 3.1 g/dL (2.5-4.5) 04/11/19 05:15 Albumin/Globulin Ratio 0.9 Ratio (1.1-2.1) L 04/11/19 05:15 Vitamin B12 390 pg/mL (193-986) 04/06/19 16:15 Folate > 20.0 ng/mL (>8.6) 04/06/19 16:15 Specimen Type Catherized urine 04/06/19 23:26 Urine Color Yellow (YELLOW) 04/06/19 23:26 Urine Appearance Clear (CLEAR) 04/06/19 23: Urine pH 6.0 (5.0 - 8.0) 04/06/19 23: Ur Specific [place] 1.005 (1.000-1.030) 04/06/19 23:26 Urine Protein Negative (NEGATIVE) 04/06/19 23: Urine Glucose (UA) Negative (NEGATIVE) 04/06/19 23: Urine Ketones Negative (NEGATIVE) 04/06/19 23: Urine Occult Blood 4+ (NEGATIVE) 04/06/19 23:26 Urine Nitrite Negative (NEGATIVE) 04/06/19 23:26 Urine Bilirubin Negative (NEGATIVE) 04/06/19 23:26 Urine Urobilinogen Normal (NORMAL) 04/06/19 23:26 Ur Leukocyte Esterase Negative (NEGATIVE) 04/06/19 23:26 Urine RBC 3-5 /HPF (NONE SEEN) 04/06/19 23:26 Urine WBC None seen /HPF (NONE SEEN) 04/06/19 23:26 Ur Squamous Epith Cells Rare /HPF (NEGATIVE) 04/06/19 23:26 Amorphous Sediment 1+ /HPF (NEGATIVE) 04/06/19 23:26 Urine Bacteria Negative /HPF (NEGATIVE) 04/06/19 23:26 Ur Culture Indicated? Yes/culture set up 04/06/19 23:26 Stool Description 5g,brown,unformed 04/07/19 10:47 Stl Occult Blood (IFOB) Positive (NEGATIVE) A 04/07/19 10:47 Stool for White Cells Positive (NEGATIVE) A 04/07/19 10:47 Stl C. diff Tox B Gene Positive (NEGATIVE) A 04/07/19 10:47 Stl C. diff 027-NAP1-BI Negative (NEGATIVE) 04/07/19 10:47 Stool H. pylori Ag Positive (NEGATIVE) A 04/07/19 10:47 C. difficile Toxin A&B Negative (NEGATIVE) 04/07/19 10:47 - Plan (1) C. difficile enteritis Status: Acute Plan: Continue antibiotics. Monitor Labs. (2) Weakness Status: Acute Plan: Continue physical therapy. Consult for rehab placement/swingbed. (3) Parkinson disease Status: Chronic Plan: Continue present meds. (4) Diarrhea Status: Acute Plan: Monitor Output. Continue treatment for C Diff.
[2019-04-11] MEDS: NS 1000 ML 1,000 ML IV SCH ×2 (12:14→21:19)
[2019-04-11] MEDS: SINEMET CR 50/200 MG PO SCH (21:19)
[2019-04-11] MEDS: COLACE CAP 100 MG PO PRN (21:19)
[2019-04-12] MEDS: FLAGYL IV PREMIX 500 MG BAG 500 MG/100 ML BAG IV SCH ×4 (04:00→21:25)
[2019-04-12] MEDS: NS 1000 ML 1,000 ML IV SCH ×3 (04:11→21:24)
[2019-04-12] MEDS: SINEMET (PLAIN) 25/250 MG PO SCH ×3 (05:42→21:26)
[2019-04-12] MEDS: NEURONTIN CAP 300 MG PO SCH (05:42)
[2019-04-12 06:27] LABS: BASOPHILS % (AUTO) 0.5 % (0.2-1.0); EOSINOPHILS # (AUTO) 0.4 x10^3/uL (0.0-0.2); EOSINOPHILS % (AUTO) 8.1 % (0.9-2.9); HEMATOCRIT 34.1 % (42.0-54.0); HEMOGLOBIN 11.5 g/dL (13.5-18.0); LYMPHOCYTES % (AUTO) 20.4 % (21.0-51.0); MEAN CORPUSCULAR HEMOGLOBIN 32.1 pg (27.0-34.0); MEAN CORPUSCULAR HGB CONC 33.7 g/dL (33.0-35.0); MEAN CORPUSCULAR VOLUME 95.4 fL (80.0-100.0); MEAN PLATELET VOLUME 8.4 fL (7.4-11.0); MONOCYTES # (AUTO) 0.5 x10^3/uL (0.3-0.8); MONOCYTES % (AUTO) 10.9 % (0.0-13.0); NEUTROPHILS # (AUTO) 2.9 x10^3/uL (2.2-4.8); NEUTROPHILS % (AUTO) 60.1 % (42.0-75.0); PLATELET COUNT 268 X10^3/uL (150.0-450.0); RED BLOOD COUNT 3.58 X10^6/uL (4.7-6.0); RED CELL DISTRIBUTION WIDTH 13.9 % (11.6-16.5); WHITE BLOOD COUNT 4.9 X10^3/uL (3.6-10.0)
[2019-04-12 06:43] LABS: ALANINE AMINOTRANSFERASE 9 Units/L (12-78); ALBUMIN 2.8 g/dL (3.4-5.0); ALKALINE PHOSPHATASE 85 Units/L (46-116); ASPARTATE AMINO TRANSFERASE 59 Units/L (15-37); BLOOD UREA NITROGEN 12 mg/dL (7-18); CALCIUM 9.1 mg/dL (8.5-10.1); CARBON DIOXIDE 31.8 mmol/L (21-32); CHLORIDE 104 mmol/L (98-107); COR CA(FOR HYPOALB) 10.1 mg/dL (8.5-10.1); CREATININE 0.85 mg/dL (0.70-1.30); SODIUM 138 mmol/L (136-145); eGFR NON BLACK RACES > 60 (>60)
[2019-04-12] MEDS: MILK OF MAGNESIA PO SCH (08:35)
[2019-04-12] MEDS: LOVENOX INJ 40 MG SYR SC SCH (08:35)
[2019-04-12] MEDS: CIPRO IV 400 MG PREMIX* 400 MG/200 ML IV.SOLN. IV SCH ×2 (08:37→20:08)
[2019-04-12] MEDS: PROTONIX INJ 40 MG VIAL IVP SCH (08:37)
[2019-04-12] MEDS: ASPIRIN 81 MG CHEWTAB PO SCH (08:37)
[2019-04-12] MEDS: ZANTAC PO SCH (08:37)
[2019-04-12] MEDS: PATIENT'S HOME MEDICATION PO SCH ×6 (08:39→21:27)
--- NOTE | 2019-04-12 12:18 | PCM.PROG ---
Progress Note - Progress Note for Day of Date of Exam: 04/12/19 - Subjective Subjective: Mr. Gutierrez is a 79-year-old white male admitted on 04/06/19, with perfuse diarrhea, hypotension, and tachycardia. The patient was noted to have a positive C. diff colitis and H. Pylori. He is on PPI therapy, gentle IV hydration, Cipro, and Flagyl. The patient does appear to feel a little bit better this morning. Does continue to feel weak. Did have orthostatic hypotension with BP after sitting on side of bed yesterday. - Past Medical Family Social History Past Med/Fam/Surg Hx: No changes since H&P Allergies: Allergies No Known Drug Allergies Allergy (Verified 04/06/19 17:06) - Review of Systems ROS: No change since H&P - Vital Signs and I&O's Vital Signs: Temperature 98.2 F Pulse Rate [Apical] 90 Pulse Rate 95 Respiratory Rate 14 Blood Pressure [Left Arm] 121/69 Blood Pressure [Right Arm] 106/58 Blood Pressure 118/58 O2 Sat by Pulse Oximetry 97 Intake and Output: Intake & Output 04/09/19 04/10/19 04/11/19 04/12/19 23:59 23:59 23:59 23:59 Intake Total 3790 / 3790 2512 / 2512 1537 / 1537 601 / 601 Output Total 3525 / 3525 4275 / 4275 4100 / 4100 850 / 850 Balance 265 / 265 -1763 / -1763 -2563 / -2563 -249 / -249 - Physical Exam Oriented: Normal Eyes: Normal Ear: Normal Nose: Normal Throat: Normal Respiratory: Normal Cardiovascular: Normal, Tachycardia, Edema : Normal Auscultation: Bowel Sounds: Normal Palpation: Normal Tenderness: Normal Skin: Normal Musculoskeletal: Right, Left, Back:Lumbar, Motor Deficit, Sensory Deficit Psychiatric: Depression Mood Description: Calm Affect: Quiet Speech Pattern: Clear, Appropriate - Laboratory and Diagnostics Result Diagrams: 04/12/19 05:31 04/12/19 05:31 Labs: 04/06/19 16:15 Blood Blood Culture - Final 04/06/19 16:15 Blood Blood Culture - Final 04/07/19 10:47 Stool Stool Culture - Final 04/07/19 10:47 Stool - Final 04/06/19 23:22 Urine,Clean Catch Urine Culture - Final Laboratory WBC 4.9 X10^3/uL (3.6-10.0) 04/12/19 05:31 RBC 3.58 X10^6/uL (4.7-6.0) L 04/12/19 05:31 Hgb 11.5 g/dL (13.5-18.0) L 04/12/19 05:31 Hct 34.1 % (42.0-54.0) L 04/12/19 05:31 MCV 95.4 fL (80.0-100.0) 04/12/19 05:31 MCH 32.1 pg (27.0-34.0) 04/12/19 05:31 MCHC 33.7 g/dL (33.0-35.0) 04/12/19 05:31 RDW 13.9 % (11.6-16.5) 04/12/19 05:31 Plt Count 268 X10^3/uL (150.0-450.0) 04/12/19 05:31 Plt Count Comment Adequate (ADEQUATE) 04/07/19 05:34 MPV 8.4 fL (7.4-11.0) 04/12/19 05:31 Neut % (Auto) 60.1 % (42.0-75.0) 04/12/19 05:31 Lymph % (Auto) 20.4 % (21.0-51.0) L 04/12/19 05:31 [place] % (Auto) 10.9 % (0.0-13.0) 04/12/19 05:31 Eos % (Auto) 8.1 % (0.9-2.9) H 04/12/19 05:31 Baso % (Auto) 0.5 % (0.2-1.0) 04/12/19 05:31 Neut # (Auto) 2.9 x10^3/uL (2.2-4.8) 04/12/19 05:31 Lymph # (Auto) 1.0 X10^3/uL (1.3-2.9) L 04/12/19 05:31 [place] # (Auto) 0.5 x10^3/uL (0.3-0.8) 04/12/19 05:31 Eos # (Auto) 0.4 x10^3/uL (0.0-0.2) H 04/12/19 05:31 Baso # (Auto) 0.0 X10^3/uL (0.0-0.1) 04/12/19 05:31 Absolute Nucleated RBC 0.1 /100WBC 04/12/19 05:31 Total Counted 100 04/07/19 05:34 Neutrophils % (Manual) 90 % (39-76) H 04/07/19 05:34 Band Neutrophils % 1 % (0-10) 04/07/19 05:34 Lymphocytes % (Manual) 4 % (13-43) L 04/07/19 05:34 Monocytes % (Manual) 5 % (4-9) 04/07/19 05:34 Plt Morphology Comment Normal (NORMAL) 04/07/19 05:34 RBC Morphology Normal (NORMAL) 04/07/19 05:34 Sodium 138 mmol/L (136-145) 04/12/19 05:31 Corrected Sodium TNP 04/12/19 05:31 Potassium 4.6 mmol/L (3.5-5.1) 04/12/19 05:31 Chloride 104 mmol/L (98-107) 04/12/19 05:31 Carbon Dioxide 31.8 mmol/L (21-32) 04/12/19 05:31 BUN 12 mg/dL (7-18) 04/12/19 05:31 Creatinine 0.85 mg/dL (0.70-1.30) 04/12/19 05:31 Est GFR (MDRD) Af Amer > 60 (>60) 04/12/19 05:31 Est GFR (MDRD) Non-Af > 60 (>60) 04/12/19 05:31 Glucose 107 mg/dL (65-99) H 04/12/19 05:31 Calcium 9.1 mg/dL (8.5-10.1) 04/12/19 05:31 Corrected Calcium 10.1 mg/dL (8.5-10.1) 04/12/19 05:31 Magnesium 2.2 mg/dL (1.7-2.9) 04/06/19 16:15 Iron 19 ug/dL (50-175) L 04/06/19 16:15 Transferrin 185 mg/dL (202-364) L 04/06/19 16:15 Ferritin 538 ng/mL (26-388) H 04/06/19 16:15 Total Bilirubin 0.40 mg/dL (0.2-1.0) 04/12/19 05:31 AST 59 Units/L (15-37) H 04/12/19 05:31 ALT 9 Units/L (12-78) L 04/12/19 05:31 Alkaline Phosphatase 85 Units/L (46-116) 04/12/19 05:31 Creatine Kinase 111 Units/L (39-308) 04/06/19 16:15 CK-MB (CK-2) 2.0 ng/mL (0-4.0) 04/06/19 16:15 CK/CKMB % Calc 1.8 % (<4) 04/06/19 16:15 Troponin I < 0.02 ng/mL (0-1.5) 04/06/19 16:15 Total Protein 6.0 g/dL (6.4-8.2) L 04/12/19 05:31 Albumin 2.8 g/dL (3.4-5.0) L 04/12/19 05:31 Globulin 3.2 g/dL (2.5-4.5) 04/12/19 05:31 Albumin/Globulin Ratio 0.9 Ratio (1.1-2.1) L 04/12/19 05:31 Vitamin B12 390 pg/mL (193-986) 04/06/19 16:15 Folate > 20.0 ng/mL (>8.6) 04/06/19 16:15 Specimen Type Catherized urine 04/06/19 23:26 Urine Color Yellow (YELLOW) 04/06/19 23:26 Urine Appearance Clear (CLEAR) 04/06/19 23:26 Urine pH 6.0 (5.0 - 8.0) 04/06/19 23: Ur Specific [place] 1.005 (1.000-1.030) 04/06/19 23:26 Urine Protein Negative (NEGATIVE) 04/06/19 23: Urine Glucose (UA) Negative (NEGATIVE) 04/06/19 23: Urine Ketones Negative (NEGATIVE) 04/06/19 23:26 Urine Occult Blood 4+ (NEGATIVE) 04/06/19 23: Urine Nitrite Negative (NEGATIVE) 04/06/19 23:26 Urine Bilirubin Negative (NEGATIVE) 04/06/19 23:26 Urine Urobilinogen Normal (NORMAL) 04/06/19 23:26 Ur Leukocyte Esterase Negative (NEGATIVE) 04/06/19 23:26 Urine RBC 3-5 /HPF (NONE SEEN) 04/06/19 23:26 Urine WBC None seen /HPF (NONE SEEN) 04/06/19 23:26 Ur Squamous Epith Cells Rare /HPF (NEGATIVE) 04/06/19 23:26 Amorphous Sediment 1+ /HPF (NEGATIVE) 04/06/19 23:26 Urine Bacteria Negative /HPF (NEGATIVE) 04/06/19 23:26 Ur Culture Indicated? Yes/culture set up 04/06/19 23:26 Stool Description 5g,brown,unformed 04/07/19 10:47 Stl Occult Blood (IFOB) Positive (NEGATIVE) A 04/07/19 10:47 Stool for White Cells Positive (NEGATIVE) A 04/07/19 10:47 Stl C. diff Tox B Gene Positive (NEGATIVE) A 04/07/19 10:47 Stl C. diff 027-NAP1-BI Negative (NEGATIVE) 04/07/19 10:47 Stool H. pylori Ag Positive (NEGATIVE) A 04/07/19 10:47 C. difficile Toxin A&B Negative (NEGATIVE) 04/07/19 10:47 - Plan (1) C. difficile enteritis Status: Acute Plan: Continue antibiotics. Monitor Labs. (2) Weakness Status: Acute Plan: Continue physical therapy. Consult for rehab placement/swingbed. (3) Parkinson disease Status: Chronic Plan: Continue present meds. (4) Diarrhea Status: Acute Plan: Monitor Output. Continue treatment for C Diff. (5) Orthostatic hypotension Status: Acute Plan: Monitor BP, Reviewed medications, Decrease Gabapentin to 100mg TID.
[2019-04-12] MEDS: NEURONTIN CAP 100 MG PO SCH ×2 (13:52→21:27)
[2019-04-12] MEDS ORDERED: NEURONTIN CAP 300 MG PO SCH (14:00)
[2019-04-12] MEDS: SINEMET CR 50/200 MG PO SCH (21:26)
[2019-04-13] MEDS: FLAGYL IV PREMIX 500 MG BAG 500 MG/100 ML BAG IV SCH ×4 (04:12→20:14)
[2019-04-13] MEDS: SINEMET (PLAIN) 25/250 MG PO SCH ×3 (05:48→21:40)
[2019-04-13] MEDS: NS 1000 ML 1,000 ML IV SCH (05:48)
[2019-04-13] MEDS: NEURONTIN CAP 100 MG PO SCH ×3 (05:48→21:40)
[2019-04-13 06:30] LABS: BASOPHILS % (AUTO) 0.9 % (0.2-1.0); EOSINOPHILS # (AUTO) 0.4 x10^3/uL (0.0-0.2); HEMATOCRIT 33.1 % (42.0-54.0); HEMOGLOBIN 11.3 g/dL (13.5-18.0); LYMPHOCYTES % (AUTO) 20.4 % (21.0-51.0); MEAN CORPUSCULAR HEMOGLOBIN 32.6 pg (27.0-34.0); MEAN CORPUSCULAR HGB CONC 34.3 g/dL (33.0-35.0); MEAN CORPUSCULAR VOLUME 95.2 fL (80.0-100.0); MEAN PLATELET VOLUME 7.8 fL (7.4-11.0); MONOCYTES # (AUTO) 0.5 x10^3/uL (0.3-0.8); MONOCYTES % (AUTO) 10.4 % (0.0-13.0); NEUTROPHILS # (AUTO) 2.9 x10^3/uL (2.2-4.8); NEUTROPHILS % (AUTO) 60.3 % (42.0-75.0); PLATELET COUNT 258 X10^3/uL (150.0-450.0); RED BLOOD COUNT 3.47 X10^6/uL (4.7-6.0); RED CELL DISTRIBUTION WIDTH 13.8 % (11.6-16.5); WHITE BLOOD COUNT 4.8 X10^3/uL (3.6-10.0)
[2019-04-13 06:36] LABS: ALANINE AMINOTRANSFERASE 13 Units/L (12-78); ALBUMIN 2.8 g/dL (3.4-5.0); ALKALINE PHOSPHATASE 87 Units/L (46-116); ASPARTATE AMINO TRANSFERASE 96 Units/L (15-37); BLOOD UREA NITROGEN 12 mg/dL (7-18); CARBON DIOXIDE 30.6 mmol/L (21-32); CHLORIDE 104 mmol/L (98-107); COR NA(FOR HYPERGLY) 140 mmol/L (136-145); CREATININE 0.87 mg/dL (0.70-1.30); SODIUM 139 mmol/L (136-145); TOTAL PROTEIN 5.9 g/dL (6.4-8.2); eGFR NON BLACK RACES > 60 (>60)
[2019-04-13] MEDS: PATIENT'S HOME MEDICATION PO SCH ×5 (09:23→21:57)
[2019-04-13] MEDS: ZANTAC PO SCH (09:24)
[2019-04-13] MEDS: CIPRO IV 400 MG PREMIX* 400 MG/200 ML IV.SOLN. IV SCH ×2 (09:24→21:40)
[2019-04-13] MEDS: MILK OF MAGNESIA PO SCH (09:24)
[2019-04-13] MEDS: PROTONIX INJ 40 MG VIAL IVP SCH (09:24)
[2019-04-13] MEDS: ASPIRIN 81 MG CHEWTAB PO SCH (09:24)
[2019-04-13] MEDS: LOVENOX INJ 40 MG SYR SC SCH (09:31)
[2019-04-13] MEDS: SINEMET CR 50/200 MG PO SCH (21:40)
[2019-04-14] MEDS: FLAGYL IV PREMIX 500 MG BAG 500 MG/100 ML BAG IV SCH ×4 (03:55→21:03)
[2019-04-14] MEDS: NS 1000 ML 1,000 ML IV SCH ×2 (04:07→04:08)
[2019-04-14] MEDS: SINEMET (PLAIN) 25/250 MG PO SCH ×3 (05:29→21:34)
[2019-04-14] MEDS: NEURONTIN CAP 100 MG PO SCH ×3 (05:29→21:34)
[2019-04-14 05:33] LABS: BASOPHILS # (AUTO) 0.1 X10^3/uL (0.0-0.1); BASOPHILS % (AUTO) 1.1 % (0.2-1.0); EOSINOPHILS # (AUTO) 0.3 x10^3/uL (0.0-0.2); EOSINOPHILS % (AUTO) 6.4 % (0.9-2.9); HEMOGLOBIN 12.5 g/dL (13.5-18.0); LYMPHOCYTES # (AUTO) 1.1 X10^3/uL (1.3-2.9); MEAN CORPUSCULAR HEMOGLOBIN 32.4 pg (27.0-34.0); MEAN CORPUSCULAR HGB CONC 33.9 g/dL (33.0-35.0); MEAN CORPUSCULAR VOLUME 95.6 fL (80.0-100.0); MEAN PLATELET VOLUME 8.4 fL (7.4-11.0); MONOCYTES # (AUTO) 0.6 x10^3/uL (0.3-0.8); MONOCYTES % (AUTO) 10.9 % (0.0-13.0); NEUTROPHILS # (AUTO) 3.1 x10^3/uL (2.2-4.8); NEUTROPHILS % (AUTO) 60.6 % (42.0-75.0); PLATELET COUNT 288 X10^3/uL (150.0-450.0); RED BLOOD COUNT 3.87 X10^6/uL (4.7-6.0); WHITE BLOOD COUNT 5.2 X10^3/uL (3.6-10.0)
[2019-04-14 05:52] LABS: ALANINE AMINOTRANSFERASE 16 Units/L (12-78); ALBUMIN 3.2 g/dL (3.4-5.0); ALKALINE PHOSPHATASE 84 Units/L (46-116); ASPARTATE AMINO TRANSFERASE 85 Units/L (15-37); BLOOD UREA NITROGEN 12 mg/dL (7-18); CALCIUM 9.2 mg/dL (8.5-10.1); CARBON DIOXIDE 31.7 mmol/L (21-32); CHLORIDE 105 mmol/L (98-107); COR CA(FOR HYPOALB) 9.8 mg/dL (8.5-10.1); CREATININE 0.92 mg/dL (0.70-1.30); SODIUM 143 mmol/L (136-145); TOTAL PROTEIN 6.4 g/dL (6.4-8.2); eGFR NON BLACK RACES > 60 (>60)
[2019-04-14] MEDS: ASPIRIN 81 MG CHEWTAB PO SCH (09:15)
[2019-04-14] MEDS: LOVENOX INJ 40 MG SYR SC SCH (09:15)
[2019-04-14] MEDS: CIPRO IV 400 MG PREMIX* 400 MG/200 ML IV.SOLN. IV SCH ×2 (09:15→22:05)
[2019-04-14] MEDS: MILK OF MAGNESIA PO SCH (09:15)
[2019-04-14] MEDS: ZANTAC PO SCH (09:15)
[2019-04-14] MEDS: PROTONIX INJ 40 MG VIAL IVP SCH (09:15)
[2019-04-14] MEDS: PATIENT'S HOME MEDICATION PO SCH ×4 (09:15→21:34)
[2019-04-14] MEDS ORDERED: HALDOL INJ IM PRN (12:14)
[2019-04-14] MEDS: ULTRAM PO PRN (12:29)
[2019-04-14] MEDS ORDERED: HALDOL INJ IM ONE (15:10)
[2019-04-14] MEDS: COMTAN PO SCH ×2 (16:41→21:34)
[2019-04-14] MEDS: SINEMET CR 50/200 MG PO SCH (21:34)
[2019-04-15] MEDS: FLAGYL IV PREMIX 500 MG BAG 500 MG/100 ML BAG IV SCH ×4 (03:00→20:49)
[2019-04-15 05:23] LABS: BASOPHILS % (AUTO) 0.7 % (0.2-1.0); EOSINOPHILS # (AUTO) 0.3 x10^3/uL (0.0-0.2); EOSINOPHILS % (AUTO) 5.3 % (0.9-2.9); HEMATOCRIT 34.5 % (42.0-54.0); HEMOGLOBIN 11.5 g/dL (13.5-18.0); LYMPHOCYTES # (AUTO) 1.1 X10^3/uL (1.3-2.9); LYMPHOCYTES % (AUTO) 17.9 % (21.0-51.0); MEAN CORPUSCULAR HEMOGLOBIN 31.9 pg (27.0-34.0); MEAN CORPUSCULAR HGB CONC 33.5 g/dL (33.0-35.0); MEAN CORPUSCULAR VOLUME 95.4 fL (80.0-100.0); MEAN PLATELET VOLUME 7.6 fL (7.4-11.0); MONOCYTES # (AUTO) 0.8 x10^3/uL (0.3-0.8); MONOCYTES % (AUTO) 14.1 % (0.0-13.0); NEUTROPHILS # (AUTO) 3.7 x10^3/uL (2.2-4.8); PLATELET COUNT 267 X10^3/uL (150.0-450.0); RED BLOOD COUNT 3.61 X10^6/uL (4.7-6.0); RED CELL DISTRIBUTION WIDTH 14.1 % (11.6-16.5)
[2019-04-15 05:36] LABS: ALANINE AMINOTRANSFERASE 12 Units/L (12-78); ALBUMIN 3.2 g/dL (3.4-5.0); ALKALINE PHOSPHATASE 78 Units/L (46-116); ASPARTATE AMINO TRANSFERASE 57 Units/L (15-37); BLOOD UREA NITROGEN 12 mg/dL (7-18); CALCIUM 9.4 mg/dL (8.5-10.1); CARBON DIOXIDE 28.9 mmol/L (21-32); CHLORIDE 104 mmol/L (98-107); CREATININE 0.92 mg/dL (0.70-1.30); SODIUM 140 mmol/L (136-145); TOTAL PROTEIN 6.5 g/dL (6.4-8.2); eGFR NON BLACK RACES > 60 (>60)
[2019-04-15] MEDS: NEURONTIN CAP 100 MG PO SCH ×3 (06:20→22:05)
[2019-04-15] MEDS: SINEMET (PLAIN) 25/250 MG PO SCH ×3 (06:21→22:05)
[2019-04-15] MEDS: PATIENT'S HOME MEDICATION PO SCH ×3 (08:17→20:50)
[2019-04-15] MEDS: MILK OF MAGNESIA PO SCH (08:17)
[2019-04-15] MEDS: ASPIRIN 81 MG CHEWTAB PO SCH (08:18)
[2019-04-15] MEDS: ZANTAC PO SCH (08:18)
[2019-04-15] MEDS: PROTONIX INJ 40 MG VIAL IVP SCH (08:18)
[2019-04-15] MEDS: CIPRO IV 400 MG PREMIX* 400 MG/200 ML IV.SOLN. IV SCH ×2 (08:21→20:49)
[2019-04-15] MEDS: LOVENOX INJ 40 MG SYR SC SCH (08:21)
[2019-04-15] MEDS: COMTAN PO SCH ×4 (08:21→20:49)
[2019-04-15] MEDS: NS 1000 ML 1,000 ML IV SCH ×2 (14:10)
[2019-04-15] MEDS: SINEMET CR 50/200 MG PO SCH (20:50)
[2019-04-16] MEDS: NS 1000 ML 1,000 ML IV SCH ×2 (01:20→04:00)
[2019-04-16] MEDS: FLAGYL IV PREMIX 500 MG BAG 500 MG/100 ML BAG IV SCH ×3 (03:01→16:07)
[2019-04-16] MEDS: NEURONTIN CAP 100 MG PO SCH ×2 (05:52→14:28)
[2019-04-16] MEDS: SINEMET (PLAIN) 25/250 MG PO SCH ×2 (05:53→14:28)
[2019-04-16 05:57] LABS: BASOPHILS % (AUTO) 0.6 % (0.2-1.0); EOSINOPHILS # (AUTO) 0.4 x10^3/uL (0.0-0.2); EOSINOPHILS % (AUTO) 5.8 % (0.9-2.9); HEMATOCRIT 34.1 % (42.0-54.0); HEMOGLOBIN 11.6 g/dL (13.5-18.0); LYMPHOCYTES % (AUTO) 15.6 % (21.0-51.0); MEAN CORPUSCULAR HEMOGLOBIN 32.4 pg (27.0-34.0); MEAN CORPUSCULAR HGB CONC 33.9 g/dL (33.0-35.0); MEAN CORPUSCULAR VOLUME 95.7 fL (80.0-100.0); MEAN PLATELET VOLUME 8.2 fL (7.4-11.0); MONOCYTES # (AUTO) 0.9 x10^3/uL (0.3-0.8); MONOCYTES % (AUTO) 12.9 % (0.0-13.0); NEUTROPHILS # (AUTO) 4.4 x10^3/uL (2.2-4.8); NEUTROPHILS % (AUTO) 65.1 % (42.0-75.0); PLATELET COUNT 274 X10^3/uL (150.0-450.0); RED BLOOD COUNT 3.57 X10^6/uL (4.7-6.0); RED CELL DISTRIBUTION WIDTH 13.9 % (11.6-16.5); WHITE BLOOD COUNT 6.7 X10^3/uL (3.6-10.0)
[2019-04-16 06:16] LABS: ALANINE AMINOTRANSFERASE 14 Units/L (12-78); ALKALINE PHOSPHATASE 86 Units/L (46-116); ASPARTATE AMINO TRANSFERASE 33 Units/L (15-37); BLOOD UREA NITROGEN 14 mg/dL (7-18); CALCIUM 9.2 mg/dL (8.5-10.1); CARBON DIOXIDE 30.6 mmol/L (21-32); CHLORIDE 106 mmol/L (98-107); CREATININE 0.92 mg/dL (0.70-1.30); SODIUM 140 mmol/L (136-145); TOTAL PROTEIN 6.3 g/dL (6.4-8.2); eGFR NON BLACK RACES > 60 (>60)
[2019-04-16] MEDS: CIPRO IV 400 MG PREMIX* 400 MG/200 ML IV.SOLN. IV SCH (08:07)
[2019-04-16] MEDS: MILK OF MAGNESIA PO SCH (08:07)
[2019-04-16] MEDS: PROTONIX INJ 40 MG VIAL IVP SCH (08:08)
[2019-04-16] MEDS: ASPIRIN 81 MG CHEWTAB PO SCH (08:08)
[2019-04-16] MEDS: COMTAN PO SCH ×2 (08:09→14:27)
[2019-04-16] MEDS: ZANTAC PO SCH (08:09)
[2019-04-16] MEDS: PATIENT'S HOME MEDICATION PO SCH (08:09)
[2019-04-16] MEDS: LOVENOX INJ 40 MG SYR SC SCH (08:23)
[2019-04-16 12:23] VITALS: BP 109/56
== END 2019-04-16 15:00 | disposition home or self-care (01) | DRG 372 ==
LOC: ICU
PROVIDERS: ADMIT Internal Medicine; ATTEND Internal Medicine
DX: I11.0 Hypertensive heart disease with heart failure; B96.81 Helicobacter pylori [H. pylori] as the cause of diseases classified elsewhere; R26.89 Other abnormalities of gait and mobility; G20 Parkinson's disease; R00.0 Tachycardia, unspecified; N39.0 Urinary tract infection, site not specified; R42 Dizziness and giddiness; E87.1 Hypo-osmolality and hyponatremia; I25.2 Old myocardial infarction; I95.1 Orthostatic hypotension; R06.02 Shortness of breath; E86.0 Dehydration; I50.9 Heart failure, unspecified; I25.10 Atherosclerotic heart disease of native coronary artery without angina pectoris; R53.1 Weakness; A04.72 Enterocolitis due to Clostridium difficile, not specified as recurrent
CPT/HCPCS: 36415; 70450; 71010; 71045; 74000; 74018; 80053; 81001; 82270; 82550; 82553; 82607; 82728; 82746; 83540; 83630; 83735; 84466; 84484; 85025; 87040; 87045; 87086; 87324; 87338; 87427; 87449; 87493; 87899; 93005; 97110; 97162; 97166; 97530; 97535; 99221; 99231; A4222; C9113; S0030; G0378; J0696; J0744; J1630; J1650; J1750; J2920; J7030; J7040; J7050

== ENCOUNTER 2019-04-16 15:00 | Inpatient (IN) ==
[2019-04-16] MEDS ORDERED: ZOFRAN INJ 4 MG VIAL IVP PRN (15:37)
[2019-04-16] MEDS ORDERED: BUTT CREAM (COMPOUND) TOP PRN (15:37)
[2019-04-16] MEDS ORDERED: FLAGYL IV PREMIX 500 MG BAG 500 MG/100 ML BAG IV ONE (16:09)
[2019-04-16] MEDS: COMTAN PO SCH ×2 (17:34→20:45)
[2019-04-16] MEDS ORDERED: NS 1000 ML 1,000 ML IV SCH (18:00)
[2019-04-16] MEDS: SINEMET CR 50/200 MG PO SCH (20:43)
[2019-04-16] MEDS: FLAGYL IV PREMIX 500 MG BAG 500 MG/100 ML BAG IV SCH (20:44)
[2019-04-16] MEDS: CIPRO IV 400 MG PREMIX* 400 MG/200 ML IV.SOLN. IV SCH (20:44)
[2019-04-16] MEDS: SINEMET (PLAIN) 25/250 MG PO SCH (21:04)
[2019-04-16] MEDS: NEURONTIN CAP 100 MG PO SCH (21:04)
[2019-04-17] MEDS: FLAGYL IV PREMIX 500 MG BAG 500 MG/100 ML BAG IV SCH ×2 (02:58→08:14)
[2019-04-17] MEDS: SINEMET (PLAIN) 25/250 MG PO SCH ×3 (05:13→21:02)
[2019-04-17] MEDS: NEURONTIN CAP 100 MG PO SCH ×3 (05:14→21:02)
[2019-04-17] MEDS: COMTAN PO SCH ×4 (08:09→20:34)
[2019-04-17] MEDS: ASPIRIN 81 MG CHEWTAB PO SCH (08:12)
[2019-04-17] MEDS: ZANTAC PO SCH (08:12)
[2019-04-17] MEDS: LOVENOX INJ 40 MG SYR SC SCH (08:13)
[2019-04-17] MEDS: PATIENT'S HOME MEDICATION PO SCH ×2 (08:14→20:35)
[2019-04-17] MEDS: CIPRO IV 400 MG PREMIX* 400 MG/200 ML IV.SOLN. IV SCH (08:14)
[2019-04-17] MEDS: MILK OF MAGNESIA PO SCH (08:15)
--- NOTE | 2019-04-17 08:20 | DR.UPDATE ---
H&P Update History and Physical Update: History and Physical reviewed and patient examined. 04/06/2019 Changes noted: NO
[2019-04-17] MEDS ORDERED: PROTONIX INJ 40 MG VIAL IVP SCH (09:00)
--- NOTE | 2019-04-17 14:00 | PT/OTEVAL ---
PT/OT OBJECTIVES - HISTORY Prescription: PT consult Diagnosis: S/P C DIFF, generalized weakness, parkinsons Precautions: Fall Prior Level of Function: Assistance Required Other, comment: Pt states living by himself and gets help from family to get groceries. - COGNITION Mental Status: Alert, Oriented, Name, Date, Place, Decreased Safety Awarenes Communication Status: Verbal, Hard of Hearing Ability to Follow Directions: 2 Step - BED MOBILITY Rolling: Minimal Scooting: Moderate Bridging: Moderate - TRANSFERS Supine to Sit: Moderate Sit to Stand: Moderate Sit or Stand Pivot: Moderate Safety Comment: pacing - BALANCE Static Sitting: Fair Standing: Fair Dynamic Sitting: Fair Standing: Poor - NEUROMOTOR/SENSATION Sam. Lower Ext Sensation: WFL - ROM Bilateral LE ROM: WFL - STRENGTH Bilateral LE Strength Number: 3 Other comment: 3+/5 - GAIT Pt. ambulates how many feet?: 20 Amount of assistance required: Moderate Amount of Assistance Required: Moderate Type of Assistive Device: Rollator PT/OT ASSESSMENT - PT Problem List: Decreased Bed Mobility, Decreased Transfers, Decreased Gait, Decreased Balance, Decreased Safety, Decreased LE Strength - PT GOALS Short Term Goals Days: 10 Mobility: To be indep c bed mobility to allow return to PLOF Transfers: To be indep c transfers to allow return to PLOF Gait: To ambulate c min supervision x 50 ft c AD to increase activity tolerance [facility] Goals Days: 20 Gait: To ambulate 150 ft @ mod independence to increase activity tolerance. Balance: To improve standing S/D balance to G/G- to prevent from falls. ROM/Strength: To improve B LE mm strength 1-2 mm increment to improve stability during FA - PATIENT GOALS Goals Discussed with Patient/Family: Yes Rehabilitation Potential: Fair Weakness and Barriers: Cognitive Barrier - PLAN Suggested Treatment Plan: Bed Mobility Training, Therapeutic Activity, Gait Training, Self Care Training, Neuro Re-education, Therapeutic Ex with HEP, Patient Education, Family Education - FREQUENCY AND DURATION PT: 6x/week Expected Continuation of Care at Discharge: Determined on Progress
[2019-04-17] MEDS: FLAGYL TAB 500 MG PO SCH ×2 (14:27→20:35)
[2019-04-17] MEDS ORDERED: ZOFRAN TAB 4 MG PO PRN (15:00)
--- NOTE | 2019-04-17 15:41 | PT/OTEVAL ---
PT/OT OBJECTIVES - HISTORY Prescription: OT consult Diagnosis: s/p C-Diff, generalized weakness, parkinson's disease Precautions: fall PMH: PMHX includes the following but are not limited to: parkinson's disease, weakness, fall, edema LE, DM, hyponatremia, HX of TIA, CHF, HX of [place], HTN and hyperglycemia. Prior Level of Function: Assistance Required Other: As per pt report, pt lives with son and requires assistance for self care and functional mobility. Pt utilizes a rolling walker for outdoor mobility and a cane inside home. - COGNITION Mental Status: Alert, Oriented, Name, Place, Decreased Safety Awarenes Communication Status: Verbal, Garbled Ability to Follow Directions: 2 Step - TRANSFERS Supine to Sit: Minimal Sit to Stand: Moderate Sit or Stand Pivot: Maximum - ADL'S Grooming: Moderate Upper Body ADL: Moderate Lower Body ADL: Moderate Toileting: Moderate - BALANCE Static Sitting: Fair Standing: Fair Dynamic Sitting: Fair Standing: Poor - NEUROMOTOR/SENSATION Sam. Lower Ext Sensation: WFL Sam. Upper Ext Sensation: WFL Coordination: Impaired Proprioception: WFL - ROM Bilateral UE Muscle Tone: WFL - STRENGTH Bilateral UE Strength Number: 3 Other comment: 3+/5 Bilateral LE Strength Number: 3 Other comment: 3+/5 PT/OT ASSESSMENT - OT Problem List: Decreased Mobility ADL's, Decreased Safety Aware, Decreased Bathing, Decreased Grooming - PT GOALS Short Term Goals Days: 10 Mobility: To be indep c bed mobility to allow return to PLOF Transfers: To be indep c transfers to allow return to PLOF Gait: To ambulate c min supervision x 50 ft c AD to increase activity tolerance Balance: To improve sitting S/D balance to impprove Cargo Checker Goals Days: 20 Gait: To ambulate 150 ft @ mod independence to increase activity tolerance. Balance: To improve standing S/D balance to G/G- to prevent from falls. ROM/Strength: To improve B LE mm strength 1-2 mm increment to improve stability during FA - OT GOALS Shelter Goals Days: 20 Mobility for ADL's: Pt will improve toilet t/f independently with AE Safety Awareness: Pt will demonstrate G safety awareness to decerase fall risk Dressing: Pt will perform UB/LB dressing independently with AE as needed. Grooming: Pt will improve grooming skills to independent level Upper Ext. Strength/Use: Pt will increase BUE strength to 5/5 to increase ADL,t/f and mobility Other: Pt will imporve F.A.T. to G to increase efficiency with ADL Short Term Goals Days: 10 Mobility for ADL's: Pt will improve toilet t/f supv A with AE Safety Awareness: Pt will demonstrate F safety awareness to decerase fall risk Dressing: Pt will perform UB/LB dressing supv A with AE as needed. Grooming: Pt will improve grooming skills to supv A level Upper Ext. Strength/Use: Pt will increase BUE strength to 4+/5 to increase ADL,t/f and mobility Other: Pt will imporve F.A.T. to G- to increase efficiency with ADL - PATIENT GOALS Patient/Family Goals: return to PLOF Goals Discussed with Patient/Family: Yes Rehabilitation Potential: Good Justification for Potential: G following command, G following instructions - PLAN Suggested Treatment Plan: Therapeutic Activity, Self Care Training, Neuro Re- education, Therapeutic Ex with HEP, Patient Education, Family Education - FREQUENCY AND DURATION OT: 5x a weekxhospital stay
[2019-04-17] MEDS: SINEMET CR 50/200 MG PO SCH (20:34)
[2019-04-18] MEDS: FLAGYL TAB 500 MG PO SCH ×5 (02:55→20:43)
[2019-04-18] MEDS: NEURONTIN CAP 100 MG PO SCH ×4 (05:08→21:03)
[2019-04-18] MEDS: SINEMET (PLAIN) 25/250 MG PO SCH ×4 (05:08→21:02)
[2019-04-18] MEDS: ASPIRIN 81 MG CHEWTAB PO SCH (10:04)
[2019-04-18] MEDS: ZANTAC PO SCH (10:04)
[2019-04-18] MEDS: PROTONIX TAB 40 MG PO SCH (10:04)
[2019-04-18] MEDS: MILK OF MAGNESIA PO SCH (10:06)
[2019-04-18] MEDS: PATIENT'S HOME MEDICATION PO SCH ×2 (10:10→20:43)
[2019-04-18] MEDS: COMTAN PO SCH ×5 (10:10→20:43)
[2019-04-18] MEDS: LOVENOX INJ 40 MG SYR SC SCH (10:36)
--- NOTE | 2019-04-18 18:26 | PCM.PROG ---
Progress Note - Progress Note for Day of Date of Exam: 04/18/19 - Subjective Subjective: 79 ADMITTED ON TUESDAY TO SWING BED STATUS FOLLOWING ACUTE ILLNESS CDIFF COLITIS, WEAKNESS. PT IS CURRENTLY COOPERATING WITH PHYSICAL THERAPY. PT HAS IMPROVING LOOSE BOWEL MOVEMENTS. PT CONTINUES WITH CO GENERALIZED WEAKNESS. PT IS ON ANTIBOITIC THERAPY FOR COLITIS. PT IS TOLERATING INCREASED DIET. - Past Medical Family Social History Past Med/Fam/Surg Hx: No changes since H&P Allergies: Allergies No Known Drug Allergies Allergy (Verified 04/06/19 17:06) - Review of Systems ROS: No change since H&P - Vital Signs and I&O's Vital Signs: Temperature 98.0 F Pulse Rate [Left Brachial] 102 Respiratory Rate 18 Blood Pressure [Left Arm] 127/71 Blood Pressure [Right Arm] 108/60 Blood Pressure 109/56 O2 Sat by Pulse Oximetry 100 Intake and Output: Intake & Output 04/16/19 04/17/19 04/18/19 04/19/19 11:59 11:59 11:59 11:59 Intake Total 440 / 440 1060 / 1060 360 / 360 Output Total 1270 / 1270 1275 / 1275 Balance -830 / -830 -215 / -215 360 / 360 - Physical Exam Oriented: Normal, Person Ear: Normal Nose: Normal Throat: Normal Respiratory: Normal Cardiovascular: Normal : Normal Auscultation: Bowel Sounds: Increased Palpation: Normal Tenderness: Epigastric, Mild Skin: Decreased Turgur Musculoskeletal: Motor Deficit Psychiatric: Depression Mood Description: Calm Speech Pattern: Clear, Appropriate - Plan (1) Weakness Status: Acute Plan: SWING BED, REHAB THERAPY. CONTINUE CURRENT MEDICATION. BP CONTROL, ROUTINE LABS (2) Parkinson disease Status: Chronic (3) History of TIA (transient ischemic attack) Status: Chronic (4) CHF (congestive heart failure) Status: Chronic (5) History of [place] (myocardial infarction) Status: Chronic (6) C. difficile enteritis Status: Acute
[2019-04-18 18:33] VITALS: BMI 19.0
[2019-04-18] MEDS: SINEMET CR 50/200 MG PO SCH (20:43)
[2019-04-19] MEDS: FLAGYL TAB 500 MG PO SCH ×4 (03:25→20:53)
[2019-04-19] MEDS: NEURONTIN CAP 100 MG PO SCH ×3 (05:20→21:02)
[2019-04-19] MEDS: SINEMET (PLAIN) 25/250 MG PO SCH ×3 (05:20→21:02)
[2019-04-19] MEDS: PATIENT'S HOME MEDICATION PO SCH ×2 (09:25→20:52)
[2019-04-19] MEDS: COMTAN PO SCH ×4 (09:25→20:52)
[2019-04-19] MEDS: PROTONIX TAB 40 MG PO SCH (09:26)
[2019-04-19] MEDS: LOVENOX INJ 40 MG SYR SC SCH (09:26)
[2019-04-19] MEDS: MILK OF MAGNESIA PO SCH (09:26)
[2019-04-19] MEDS: ASPIRIN 81 MG CHEWTAB PO SCH (09:26)
[2019-04-19] MEDS: ZANTAC PO SCH (09:26)
[2019-04-19] MEDS: SINEMET CR 50/200 MG PO SCH (20:53)
[2019-04-19] MEDS: COLACE CAP 100 MG PO PRN (20:53)
[2019-04-20] MEDS: FLAGYL TAB 500 MG PO SCH ×4 (02:45→21:00)
[2019-04-20 06:02] LABS: BASOPHILS % (AUTO) 0.6 % (0.2-1.0); EOSINOPHILS # (AUTO) 0.2 x10^3/uL (0.0-0.2); EOSINOPHILS % (AUTO) 3.6 % (0.9-2.9); HEMATOCRIT 34.9 % (42.0-54.0); HEMOGLOBIN 11.8 g/dL (13.5-18.0); LYMPHOCYTES % (AUTO) 15.9 % (21.0-51.0); MEAN CORPUSCULAR HEMOGLOBIN 32.2 pg (27.0-34.0); MEAN CORPUSCULAR HGB CONC 33.9 g/dL (33.0-35.0); MEAN CORPUSCULAR VOLUME 94.9 fL (80.0-100.0); MEAN PLATELET VOLUME 7.8 fL (7.4-11.0); MONOCYTES # (AUTO) 0.6 x10^3/uL (0.3-0.8); MONOCYTES % (AUTO) 8.8 % (0.0-13.0); NEUTROPHILS # (AUTO) 4.6 x10^3/uL (2.2-4.8); NEUTROPHILS % (AUTO) 71.1 % (42.0-75.0); PLATELET COUNT 269 X10^3/uL (150.0-450.0); RED BLOOD COUNT 3.68 X10^6/uL (4.7-6.0); RED CELL DISTRIBUTION WIDTH 14.3 % (11.6-16.5); WHITE BLOOD COUNT 6.5 X10^3/uL (3.6-10.0)
[2019-04-20] MEDS: SINEMET (PLAIN) 25/250 MG PO SCH ×3 (06:07→21:02)
[2019-04-20] MEDS: NEURONTIN CAP 100 MG PO SCH ×3 (06:07→21:00)
[2019-04-20 06:22] LABS: ALANINE AMINOTRANSFERASE 12 Units/L (12-78); ALBUMIN 3.2 g/dL (3.4-5.0); ALKALINE PHOSPHATASE 81 Units/L (46-116); ASPARTATE AMINO TRANSFERASE 13 Units/L (15-37); BLOOD UREA NITROGEN 19 mg/dL (7-18); CALCIUM 9.5 mg/dL (8.5-10.1); CARBON DIOXIDE 31.3 mmol/L (21-32); CHLORIDE 102 mmol/L (98-107); COR CA(FOR HYPOALB) 10.1 mg/dL (8.5-10.1); CREATININE 0.97 mg/dL (0.70-1.30); SODIUM 139 mmol/L (136-145); TOTAL PROTEIN 6.6 g/dL (6.4-8.2); eGFR NON BLACK RACES > 60 (>60)
[2019-04-20] MEDS: PROTONIX TAB 40 MG PO SCH (08:56)
[2019-04-20] MEDS: MILK OF MAGNESIA PO SCH (08:56)
[2019-04-20] MEDS: ASPIRIN 81 MG CHEWTAB PO SCH (08:56)
[2019-04-20] MEDS: COMTAN PO SCH ×4 (08:56→21:04)
[2019-04-20] MEDS: PATIENT'S HOME MEDICATION PO SCH ×2 (08:56→21:04)
[2019-04-20] MEDS: SINEMET CR 50/200 MG PO SCH (21:01)
[2019-04-21] MEDS: FLAGYL TAB 500 MG PO SCH ×4 (03:14→20:58)
[2019-04-21] MEDS: NEURONTIN CAP 100 MG PO SCH ×3 (05:24→21:02)
[2019-04-21] MEDS: SINEMET (PLAIN) 25/250 MG PO SCH ×3 (05:24→21:02)
[2019-04-21] MEDS: PATIENT'S HOME MEDICATION PO SCH ×2 (09:03→20:57)
[2019-04-21] MEDS: PROTONIX TAB 40 MG PO SCH (09:04)
[2019-04-21] MEDS: ASPIRIN 81 MG CHEWTAB PO SCH (09:04)
[2019-04-21] MEDS: MILK OF MAGNESIA PO SCH (09:04)
[2019-04-21] MEDS: COMTAN PO SCH ×4 (09:04→20:58)
[2019-04-21] MEDS: COLACE CAP 100 MG PO PRN (20:58)
[2019-04-21] MEDS: SINEMET CR 50/200 MG PO SCH (20:58)
[2019-04-22] MEDS: FLAGYL TAB 500 MG PO SCH ×4 (03:19→20:30)
[2019-04-22] MEDS: NEURONTIN CAP 100 MG PO SCH ×3 (06:37→21:13)
[2019-04-22] MEDS: SINEMET (PLAIN) 25/250 MG PO SCH ×3 (06:37→21:13)
[2019-04-22] MEDS: PROTONIX TAB 40 MG PO SCH (09:28)
[2019-04-22] MEDS: ASPIRIN 81 MG CHEWTAB PO SCH (09:28)
[2019-04-22] MEDS: MILK OF MAGNESIA PO SCH (09:28)
[2019-04-22] MEDS: COMTAN PO SCH ×4 (09:43→20:30)
[2019-04-22] MEDS: PATIENT'S HOME MEDICATION PO SCH ×2 (09:43→20:29)
[2019-04-22] MEDS: SINEMET CR 50/200 MG PO SCH (20:30)
[2019-04-22] MEDS: COLACE CAP 100 MG PO PRN (20:30)
[2019-04-23] MEDS: FLAGYL TAB 500 MG PO SCH ×4 (03:30→20:11)
[2019-04-23 04:43] LABS: BASOPHILS # (AUTO) 0.1 X10^3/uL (0.0-0.1); BASOPHILS % (AUTO) 1.3 % (0.2-1.0); EOSINOPHILS # (AUTO) 0.2 x10^3/uL (0.0-0.2); EOSINOPHILS % (AUTO) 3.4 % (0.9-2.9); HEMATOCRIT 36.1 % (42.0-54.0); HEMOGLOBIN 11.8 g/dL (13.5-18.0); LYMPHOCYTES % (AUTO) 23.1 % (21.0-51.0); MEAN CORPUSCULAR HEMOGLOBIN 31.8 pg (27.0-34.0); MEAN CORPUSCULAR HGB CONC 32.8 g/dL (33.0-35.0); MEAN PLATELET VOLUME 8.6 fL (7.4-11.0); MONOCYTES # (AUTO) 0.5 x10^3/uL (0.3-0.8); MONOCYTES % (AUTO) 11.5 % (0.0-13.0); NEUTROPHILS # (AUTO) 2.7 x10^3/uL (2.2-4.8); NEUTROPHILS % (AUTO) 60.7 % (42.0-75.0); PLATELET COUNT 288 X10^3/uL (150.0-450.0); RED BLOOD COUNT 3.73 X10^6/uL (4.7-6.0); RED CELL DISTRIBUTION WIDTH 14.5 % (11.6-16.5); WHITE BLOOD COUNT 4.4 X10^3/uL (3.6-10.0)
[2019-04-23 05:04] LABS: ALANINE AMINOTRANSFERASE 10 Units/L (12-78); ALBUMIN 3.3 g/dL (3.4-5.0); ALKALINE PHOSPHATASE 78 Units/L (46-116); ASPARTATE AMINO TRANSFERASE 17 Units/L (15-37); BLOOD UREA NITROGEN 17 mg/dL (7-18); CALCIUM 9.7 mg/dL (8.5-10.1); CARBON DIOXIDE 32.3 mmol/L (21-32); CHLORIDE 103 mmol/L (98-107); COR CA(FOR HYPOALB) 10.3 mg/dL (8.5-10.1); CREATININE 1.04 mg/dL (0.70-1.30); SODIUM 139 mmol/L (136-145); TOTAL PROTEIN 6.8 g/dL (6.4-8.2); eGFR NON BLACK RACES > 60 (>60)
[2019-04-23] MEDS: NEURONTIN CAP 100 MG PO SCH ×3 (05:31→21:35)
[2019-04-23] MEDS: SINEMET (PLAIN) 25/250 MG PO SCH ×3 (05:31→23:47)
[2019-04-23] MEDS: PATIENT'S HOME MEDICATION PO SCH ×2 (09:07→20:11)
[2019-04-23] MEDS: ASPIRIN 81 MG CHEWTAB PO SCH (09:07)
[2019-04-23] MEDS: COMTAN PO SCH ×4 (09:07→20:12)
[2019-04-23] MEDS: MILK OF MAGNESIA PO SCH (09:08)
[2019-04-23] MEDS: PROTONIX TAB 40 MG PO SCH (09:08)
[2019-04-23] MEDS: COLACE CAP 100 MG PO PRN (20:11)
[2019-04-23] MEDS: SINEMET CR 50/200 MG PO SCH (20:12)
[2019-04-24] MEDS: FLAGYL TAB 500 MG PO SCH ×4 (02:57→20:06)
[2019-04-24] MEDS: ULTRAM PO PRN ×2 (03:06→20:04)
[2019-04-24] MEDS: SINEMET (PLAIN) 25/250 MG PO SCH ×3 (05:17→21:11)
[2019-04-24] MEDS: NEURONTIN CAP 100 MG PO SCH ×3 (05:17→21:11)
[2019-04-24] MEDS: ASPIRIN 81 MG CHEWTAB PO SCH (09:47)
[2019-04-24] MEDS: PROTONIX TAB 40 MG PO SCH (09:47)
[2019-04-24] MEDS: COMTAN PO SCH ×4 (09:48→20:04)
[2019-04-24] MEDS: PATIENT'S HOME MEDICATION PO SCH ×2 (09:48→21:53)
[2019-04-24] MEDS: MILK OF MAGNESIA PO SCH (09:48)
--- NOTE | 2019-04-24 13:25 | PCM.PROG ---
Progress Note - Progress Note for Day of Date of Exam: 04/24/19 - Subjective Subjective: 79 ADMITTED TO SWING BED STATUS FOLLOWING ACUTE ILLNESS CDIFF COLITIS, WEAKNESS. PT IS CURRENTLY COOPERATING WITH PHYSICAL THERAPY. PT HAS IMPROVING LOOSE BOWEL MOVEMENTS. PT CONTINUES WITH CO GENERALIZED WEAKNESS. PT IS ON ANTIBOITIC THERAPY FOR COLITIS. PT IS TOLERATING INCREASED DIET. PT IS EXPERIENCING EPISODES OF CONFUSION RELATED TO INSTITUTION AND SUNDOWNERS. PT IS EASILY REORIENTED AT THIS TIME. - Past Medical Family Social History Past Med/Fam/Surg Hx: No changes since H&P Allergies: Allergies No Known Drug Allergies Allergy (Verified 04/06/19 17:06) - Review of Systems ROS: No change since H&P - Vital Signs and I&O's Vital Signs: Temperature 98 F Pulse Rate [Left Brachial] 92 Respiratory Rate 18 Blood Pressure [Left Arm] 113/71 Blood Pressure [Right Arm] 118/62 Blood Pressure 109/56 O2 Sat by Pulse Oximetry 97 Intake and Output: Intake & Output 04/22/19 04/23/19 04/24/19 04/25/19 11:59 11:59 11:59 11:59 Intake Total 860 / 860 435 / 435 820 / 820 Output Total 300 / 300 150 / 150 Balance 560 / 560 285 / 285 820 / 820 - Physical Exam Oriented: Normal, Person Ear: Normal Nose: Normal Throat: Normal Respiratory: Normal Cardiovascular: Normal : Normal Auscultation: Bowel Sounds: Increased Tenderness: Epigastric, Mild Skin: Decreased Turgur Musculoskeletal: Motor Deficit Psychiatric: Depression Mood Description: Calm Speech Pattern: Unclear - Laboratory and Diagnostics Result Diagrams: 04/23/19 04:08 04/23/19 04:08 Labs: Laboratory WBC 4.4 X10^3/uL (3.6-10.0) 04/23/19 04:08 RBC 3.73 X10^6/uL (4.7-6.0) L 04/23/19 04:08 Hgb 11.8 g/dL (13.5-18.0) L 04/23/19 04:08 Hct 36.1 % (42.0-54.0) L 04/23/19 04:08 MCV 97.0 fL (80.0-100.0) 04/23/19 04:08 MCH 31.8 pg (27.0-34.0) 04/23/19 04:08 MCHC 32.8 g/dL (33.0-35.0) L 04/23/19 04:08 RDW 14.5 % (11.6-16.5) 04/23/19 04:08 Plt Count 288 X10^3/uL (150.0-450.0) 04/23/19 04:08 MPV 8.6 fL (7.4-11.0) 04/23/19 04:08 Neut % (Auto) 60.7 % (42.0-75.0) 04/23/19 04:08 Lymph % (Auto) 23.1 % (21.0-51.0) 04/23/19 04:08 [place] % (Auto) 11.5 % (0.0-13.0) 04/23/19 04:08 Eos % (Auto) 3.4 % (0.9-2.9) H 04/23/19 04:08 Baso % (Auto) 1.3 % (0.2-1.0) H 04/23/19 04:08 Neut # (Auto) 2.7 x10^3/uL (2.2-4.8) 04/23/19 04:08 Lymph # (Auto) 1.0 X10^3/uL (1.3-2.9) L 04/23/19 04:08 [place] # (Auto) 0.5 x10^3/uL (0.3-0.8) 04/23/19 04:08 Eos # (Auto) 0.2 x10^3/uL (0.0-0.2) 04/23/19 04:08 Baso # (Auto) 0.1 X10^3/uL (0.0-0.1) 04/23/19 04:08 Absolute Nucleated RBC 0.0 /100WBC 04/23/19 04:08 Sodium 139 mmol/L (136-145) 04/23/19 04:08 Corrected Sodium TNP 04/23/19 04:08 Potassium 4.3 mmol/L (3.5-5.1) 04/23/19 04:08 Chloride 103 mmol/L (98-107) 04/23/19 04:08 Carbon Dioxide 32.3 mmol/L (21-32) H 04/23/19 04:08 BUN 17 mg/dL (7-18) 04/23/19 04:08 Creatinine 1.04 mg/dL (0.70-1.30) 04/23/19 04:08 Est GFR (MDRD) Af Amer > 60 (>60) 04/23/19 04:08 Est GFR (MDRD) Non-Af > 60 (>60) 04/23/19 04:08 Glucose 92 mg/dL (65-99) 04/23/19 04:08 Calcium 9.7 mg/dL (8.5-10.1) 04/23/19 04:08 Corrected Calcium 10.3 mg/dL (8.5-10.1) H 04/23/19 04:08 Total Bilirubin 0.70 mg/dL (0.2-1.0) 04/23/19 04:08 AST 17 Units/L (15-37) 04/23/19 04:08 ALT 10 Units/L (12-78) L 04/23/19 04:08 Alkaline Phosphatase 78 Units/L (46-116) 04/23/19 04:08 Total Protein 6.8 g/dL (6.4-8.2) 04/23/19 04:08 Albumin 3.3 g/dL (3.4-5.0) L 04/23/19 04:08 Globulin 3.5 g/dL (2.5-4.5) 04/23/19 04:08 Albumin/Globulin Ratio 0.9 Ratio (1.1-2.1) L 04/23/19 04:08 - Plan (1) Weakness Status: Acute Plan: SWING BED, REHAB THERAPY. CONTINUE CURRENT MEDICATION. BP CONTROL, ROUTINE LABS (2) Parkinson disease Status: Chronic (3) History of TIA (transient ischemic attack) Status: Chronic (4) CHF (congestive heart failure) Status: Chronic (5) History of [place] (myocardial infarction) Status: Chronic (6) C. difficile enteritis Status: Acute
[2019-04-24 16:03] LABS: BILIRUBIN,URINE NEGATIVE (NEGATIVE); BLOOD/HEMOGLOBIN,URINE 1+ (NEGATIVE); GLUCOSE, URINE NEGATIVE (NEGATIVE); KETONES,URINE 1+ (NEGATIVE); LEUKOCYTE ESTERASE ,URINE 2+ (NEGATIVE); NITRITES,URINE NEGATIVE (NEGATIVE); PROTEIN,URINE 2+ (NEGATIVE); UROBILINOGEN,URINE NORMAL (NORMAL)
[2019-04-24 16:08] LABS: APPEARANCE,URINE SLIGHTLY HAZY (CLEAR); COLOR,URINE AMBER (YELLOW)
[2019-04-24 16:09] LABS: AMORPHOUS SEDIMENT,UR 2+ /HPF (NEGATIVE); BACTERIA,URINE TRACE /HPF (NEGATIVE); FINE GRANULAR CASTS,URINE RARE /LPF (NEGATIVE); SQUAMOUS EPITHELIAL CELL,UR FEW /HPF (NEGATIVE)
[2019-04-24] MEDS: SINEMET CR 50/200 MG PO SCH (20:06)
[2019-04-24] MEDS: COLACE CAP 100 MG PO PRN (20:07)
[2019-04-25] MEDS: FLAGYL TAB 500 MG PO SCH ×2 (03:17→08:38)
[2019-04-25] MEDS: SINEMET (PLAIN) 25/250 MG PO SCH ×3 (05:09→21:02)
[2019-04-25] MEDS: ULTRAM PO PRN ×2 (05:09→21:05)
[2019-04-25] MEDS: NEURONTIN CAP 100 MG PO SCH ×3 (05:09→21:02)
[2019-04-25 06:03] VITALS: BP 111/67
[2019-04-25] MEDS: MILK OF MAGNESIA PO SCH ×2 (08:38→21:03)
[2019-04-25] MEDS: PATIENT'S HOME MEDICATION PO SCH ×2 (08:38→21:06)
[2019-04-25] MEDS: COMTAN PO SCH ×4 (08:38→21:03)
[2019-04-25] MEDS: PROTONIX TAB 40 MG PO SCH (08:38)
[2019-04-25] MEDS: ASPIRIN 81 MG CHEWTAB PO SCH (08:38)
[2019-04-25] MEDS ORDERED: NS 1000 ML 1,000 ML ONE (08:40)
[2019-04-25] MEDS ORDERED: VITAMIN B-12 INJ IM ONE (08:40)
[2019-04-25 08:51] LABS: BASOPHILS # (AUTO) 0.1 X10^3/uL (0.0-0.1); BASOPHILS % (AUTO) 1.2 % (0.2-1.0); EOSINOPHILS # (AUTO) 0.2 x10^3/uL (0.0-0.2); EOSINOPHILS % (AUTO) 3.3 % (0.9-2.9); HEMATOCRIT 35.3 % (42.0-54.0); LYMPHOCYTES # (AUTO) 1.1 X10^3/uL (1.3-2.9); LYMPHOCYTES % (AUTO) 22.6 % (21.0-51.0); MEAN CORPUSCULAR HEMOGLOBIN 32.2 pg (27.0-34.0); MEAN CORPUSCULAR HGB CONC 33.8 g/dL (33.0-35.0); MEAN CORPUSCULAR VOLUME 95.2 fL (80.0-100.0); MEAN PLATELET VOLUME 8.6 fL (7.4-11.0); MONOCYTES # (AUTO) 0.6 x10^3/uL (0.3-0.8); MONOCYTES % (AUTO) 11.7 % (0.0-13.0); NEUTROPHILS # (AUTO) 2.9 x10^3/uL (2.2-4.8); NEUTROPHILS % (AUTO) 61.2 % (42.0-75.0); PLATELET COUNT 248 X10^3/uL (150.0-450.0); RED BLOOD COUNT 3.71 X10^6/uL (4.7-6.0); RED CELL DISTRIBUTION WIDTH 14.2 % (11.6-16.5); WHITE BLOOD COUNT 4.7 X10^3/uL (3.6-10.0)
[2019-04-25 09:03] LABS: ALANINE AMINOTRANSFERASE 10 Units/L (12-78); ALBUMIN 3.6 g/dL (3.4-5.0); ALKALINE PHOSPHATASE 83 Units/L (46-116); ASPARTATE AMINO TRANSFERASE 19 Units/L (15-37); BLOOD UREA NITROGEN 17 mg/dL (7-18); CALCIUM 10.1 mg/dL (8.5-10.1); CHLORIDE 102 mmol/L (98-107); COR NA(FOR HYPERGLY) 140 mmol/L (136-145); CREATININE 1.07 mg/dL (0.70-1.30); SODIUM 140 mmol/L (136-145); TOTAL PROTEIN 7.1 g/dL (6.4-8.2); eGFR NON BLACK RACES > 60 (>60)
--- NOTE | 2019-04-25 09:10 | RAD ---
History: Chronic constipation Study: Portable KUB Comparison: April 09 Findings: There is a large amount of fecal material in the colon with a large amount of formed stool in the descending colon and rectosigmoid colon, increased from prior exam. There is gaseous distention of the stomach. Impression: Severe constipation Reported By:
[2019-04-25] MEDS ORDERED: FLEET ENEMA ADULT PR PRN (09:50)
[2019-04-25] MEDS: PEPCID 20 MG IV PREMIX* 20 MG/50 ML BAG IV SCH ×2 (10:38→21:04)
[2019-04-25] MEDS: NS 1000 ML 1,000 ML IV SCH (10:39)
[2019-04-25] MEDS: COLACE CAP 100 MG PO SCH ×2 (10:39→21:00)
--- NOTE | 2019-04-25 12:32 | PCM.PROG ---
Progress Note - Progress Note for Day of Date of Exam: 04/25/19 - Subjective Subjective: 79 ADMITTED TO SWING BED STATUS FOLLOWING ACUTE ILLNESS CDIFF COLITIS, WEAKNESS. PT IS CURRENTLY COOPERATING WITH PHYSICAL THERAPY, PUT APPEARS MUCH WEAKER TODAY. PT HAD NOT HAD BM IN SEVERAL DAYS PER NURSING STAFF. PT HAD DARK CONCENTRATED URINE AND HAVING INCREASED CONFUSION. KUB ORDERED AND IV HYDRATION, NURSING STAFF ENCOURAGED TO ASSIST WITH EATING AND DRINKING. - Past Medical Family Social History Past Med/Fam/Surg Hx: No changes since H&P Allergies: Allergies No Known Drug Allergies Allergy (Verified 04/06/19 17:06) - Review of Systems ROS: No change since H&P - Vital Signs and I&O's Vital Signs: Temperature 98.7 F Pulse Rate [Left Brachial] 98 Respiratory Rate 18 Blood Pressure [Left Arm] 111/67 Blood Pressure [Right Arm] 118/62 Blood Pressure 109/56 O2 Sat by Pulse Oximetry 97 Intake and Output: Intake & Output 04/23/19 04/24/19 04/25/19 04/26/19 11:59 11:59 11:59 11:59 Intake Total 435 / 435 820 / 820 815 / 815 Output Total 150 / 150 100 / 100 Balance 285 / 285 820 / 820 715 / 715 - Physical Exam Oriented: Normal, Person Ear: Normal Nose: Normal Throat: Normal Respiratory: Normal Cardiovascular: Normal : Normal Auscultation: Bowel Sounds: Increased Tenderness: Epigastric, Mild Skin: Decreased Turgur Musculoskeletal: Motor Deficit Psychiatric: Depression Mood Description: Calm Speech Pattern: Unclear, Delayed - Laboratory and Diagnostics Result Diagrams: 04/25/19 08:37 04/25/19 08:37 Labs: Laboratory WBC 4.7 X10^3/uL (3.6-10.0) 04/25/19 08:37 RBC 3.71 X10^6/uL (4.7-6.0) L 04/25/19 08:37 Hgb 12.0 g/dL (13.5-18.0) L 04/25/19 08:37 Hct 35.3 % (42.0-54.0) L 04/25/19 08:37 MCV 95.2 fL (80.0-100.0) 04/25/19 08:37 MCH 32.2 pg (27.0-34.0) 04/25/19 08:37 MCHC 33.8 g/dL (33.0-35.0) 04/25/19 08:37 RDW 14.2 % (11.6-16.5) 04/25/19 08:37 Plt Count 248 X10^3/uL (150.0-450.0) 04/25/19 08:37 MPV 8.6 fL (7.4-11.0) 04/25/19 08:37 Neut % (Auto) 61.2 % (42.0-75.0) 04/25/19 08:37 Lymph % (Auto) 22.6 % (21.0-51.0) 04/25/19 08:37 [place] % (Auto) 11.7 % (0.0-13.0) 04/25/19 08:37 Eos % (Auto) 3.3 % (0.9-2.9) H 04/25/19 08:37 Baso % (Auto) 1.2 % (0.2-1.0) H 04/25/19 08:37 Neut # (Auto) 2.9 x10^3/uL (2.2-4.8) 04/25/19 08:37 Lymph # (Auto) 1.1 X10^3/uL (1.3-2.9) L 04/25/19 08:37 [place] # (Auto) 0.6 x10^3/uL (0.3-0.8) 04/25/19 08:37 Eos # (Auto) 0.2 x10^3/uL (0.0-0.2) 04/25/19 08:37 Baso # (Auto) 0.1 X10^3/uL (0.0-0.1) 04/25/19 08:37 Absolute Nucleated RBC 0.1 /100WBC 04/25/19 08:37 Sodium 140 mmol/L (136-145) 04/25/19 08:37 Corrected Sodium 140 mmol/L (136-145) 04/25/19 08:37 Potassium 4.5 mmol/L (3.5-5.1) 04/25/19 08:37 Chloride 102 mmol/L (98-107) 04/25/19 08:37 Carbon Dioxide 32.0 mmol/L (21-32) 04/25/19 08:37 BUN 17 mg/dL (7-18) 04/25/19 08:37 Creatinine 1.07 mg/dL (0.70-1.30) 04/25/19 08:37 Est GFR (MDRD) Af Amer > 60 (>60) 04/25/19 08:37 Est GFR (MDRD) Non-Af > 60 (>60) 04/25/19 08:37 Glucose 118 mg/dL (65-99) H 04/25/19 08:37 Calcium 10.1 mg/dL (8.5-10.1) 04/25/19 08:37 Corrected Calcium TNP 04/25/19 08:37 Total Bilirubin 0.50 mg/dL (0.2-1.0) 04/25/19 08:37 AST 19 Units/L (15-37) 04/25/19 08:37 ALT 10 Units/L (12-78) L 04/25/19 08:37 Alkaline Phosphatase 83 Units/L (46-116) 04/25/19 08:37 Total Protein 7.1 g/dL (6.4-8.2) 04/25/19 08:37 Albumin 3.6 g/dL (3.4-5.0) 04/25/19 08:37 Globulin 3.5 g/dL (2.5-4.5) 04/25/19 08:37 Albumin/Globulin Ratio 1.0 Ratio (1.1-2.1) L 04/25/19 08:37 Specimen Type Random urine 04/24/19 15:40 Urine Color [place] (YELLOW) 04/24/19 15:40 Urine Appearance Slightly hazy (CLEAR) 04/24/19 15:40 Urine pH 7.0 (5.0 - 8.0) 04/24/19 15:40 Ur Specific [place] 1.015 (1.000-1.030) 04/24/19 15:40 Urine Protein 2+ (NEGATIVE) 04/24/19 15:40 Urine Glucose (UA) Negative (NEGATIVE) 04/24/19 15:40 Urine Ketones 1+ (NEGATIVE) 04/24/19 15:40 Urine Occult Blood 1+ (NEGATIVE) 04/24/19 15:40 Urine Nitrite Negative (NEGATIVE) 04/24/19 15:40 Urine Bilirubin Negative (NEGATIVE) 04/24/19 15:40 Urine Urobilinogen Normal (NORMAL) 04/24/19 15:40 Ur Leukocyte Esterase 2+ (NEGATIVE) 04/24/19 15:40 Urine RBC 3-5 /HPF (NONE SEEN) 04/24/19 15:40 Urine WBC 3-5 /HPF (NONE SEEN) 04/24/19 15:40 Ur Squamous Epith Cells Few /HPF (NEGATIVE) 04/24/19 15:40 Amorphous Sediment 2+ /HPF (NEGATIVE) 04/24/19 15:40 Urine Bacteria Trace /HPF (NEGATIVE) 04/24/19 15:40 Fine Granular Casts Rare /LPF (NEGATIVE) 04/24/19 15:40 Ur Culture Indicated? No/not indicated 04/24/19 15:40 - Plan (1) Weakness Status: Acute Plan: SWING BED, REHAB THERAPY. CONTINUE CURRENT MEDICATION. BP CONTROL, ROUTINE LABS (2) Parkinson disease Status: Chronic (3) History of TIA (transient ischemic attack) Status: Chronic (4) CHF (congestive heart failure) Status: Chronic (5) History of [place] (myocardial infarction) Status: Chronic (6) C. difficile enteritis Status: Acute
[2019-04-25] MEDS: FLAGYL IV PREMIX 500 MG BAG 500 MG/100 ML BAG IV SCH ×2 (18:53→21:03)
[2019-04-25] MEDS: SINEMET CR 50/200 MG PO SCH (21:00)
[2019-04-26] MEDS: NS 1000 ML 1,000 ML IV SCH ×3 (00:59→21:25)
[2019-04-26] MEDS: FLAGYL IV PREMIX 500 MG BAG 500 MG/100 ML BAG IV SCH ×4 (02:34→21:24)
[2019-04-26] MEDS: SINEMET (PLAIN) 25/250 MG PO SCH ×3 (05:06→21:23)
[2019-04-26] MEDS: NEURONTIN CAP 100 MG PO SCH ×3 (05:06→21:23)
[2019-04-26] MEDS: PROTONIX TAB 40 MG PO SCH (08:04)
[2019-04-26] MEDS: PEPCID 20 MG IV PREMIX* 20 MG/50 ML BAG IV SCH ×2 (08:04→21:24)
[2019-04-26] MEDS: ASPIRIN 81 MG CHEWTAB PO SCH (08:05)
[2019-04-26] MEDS: COLACE CAP 100 MG PO SCH ×2 (08:06→21:23)
[2019-04-26] MEDS: COMTAN PO SCH ×4 (08:07→21:22)
[2019-04-26] MEDS: PATIENT'S HOME MEDICATION PO SCH ×2 (08:07→21:24)
[2019-04-26] MEDS: MILK OF MAGNESIA PO SCH ×3 (08:08→21:24)
[2019-04-26] MEDS: ULTRAM PO PRN (21:22)
[2019-04-26] MEDS: SINEMET CR 50/200 MG PO SCH (21:23)
[2019-04-27] MEDS: FLAGYL IV PREMIX 500 MG BAG 500 MG/100 ML BAG IV SCH ×2 (03:22→09:19)
[2019-04-27] MEDS: NS 1000 ML 1,000 ML IV SCH (03:22)
[2019-04-27] MEDS: NEURONTIN CAP 100 MG PO SCH (05:17)
[2019-04-27] MEDS: SINEMET (PLAIN) 25/250 MG PO SCH (05:17)
[2019-04-27 05:37] LABS: BASOPHILS # (AUTO) 0.1 X10^3/uL (0.0-0.1); EOSINOPHILS # (AUTO) 0.3 x10^3/uL (0.0-0.2); EOSINOPHILS % (AUTO) 4.3 % (0.9-2.9); HEMATOCRIT 31.2 % (42.0-54.0); HEMOGLOBIN 10.7 g/dL (13.5-18.0); LYMPHOCYTES # (AUTO) 0.7 X10^3/uL (1.3-2.9); LYMPHOCYTES % (AUTO) 12.2 % (21.0-51.0); MEAN CORPUSCULAR HGB CONC 34.1 g/dL (33.0-35.0); MEAN CORPUSCULAR VOLUME 96.7 fL (80.0-100.0); MEAN PLATELET VOLUME 9.6 fL (7.4-11.0); MONOCYTES # (AUTO) 0.7 x10^3/uL (0.3-0.8); MONOCYTES % (AUTO) 12.2 % (0.0-13.0); NEUTROPHILS # (AUTO) 4.3 x10^3/uL (2.2-4.8); NEUTROPHILS % (AUTO) 70.3 % (42.0-75.0); PLATELET COUNT 226 X10^3/uL (150.0-450.0); RED BLOOD COUNT 3.23 X10^6/uL (4.7-6.0); RED CELL DISTRIBUTION WIDTH 14.5 % (11.6-16.5); WHITE BLOOD COUNT 6.1 X10^3/uL (3.6-10.0)
[2019-04-27 05:46] LABS: ALANINE AMINOTRANSFERASE 6 Units/L (12-78); ALBUMIN 3.1 g/dL (3.4-5.0); ALKALINE PHOSPHATASE 74 Units/L (46-116); ASPARTATE AMINO TRANSFERASE 23 Units/L (15-37); BLOOD UREA NITROGEN 12 mg/dL (7-18); CALCIUM 9.4 mg/dL (8.5-10.1); CARBON DIOXIDE 30.5 mmol/L (21-32); CHLORIDE 108 mmol/L (98-107); COR CA(FOR HYPOALB) 10.1 mg/dL (8.5-10.1); CREATININE 0.88 mg/dL (0.70-1.30); SODIUM 144 mmol/L (136-145); TOTAL PROTEIN 6.4 g/dL (6.4-8.2); eGFR NON BLACK RACES > 60 (>60)
[2019-04-27] MEDS: PEPCID 20 MG IV PREMIX* 20 MG/50 ML BAG IV SCH (09:19)
[2019-04-27] MEDS: MILK OF MAGNESIA PO SCH ×2 (09:20→09:22)
[2019-04-27] MEDS: ASPIRIN 81 MG CHEWTAB PO SCH (09:21)
[2019-04-27] MEDS: COLACE CAP 100 MG PO SCH (09:21)
[2019-04-27] MEDS: PROTONIX TAB 40 MG PO SCH (09:21)
[2019-04-27] MEDS: PATIENT'S HOME MEDICATION PO SCH (09:22)
[2019-04-27] MEDS: COMTAN PO SCH (09:22)
[2019-04-27] MEDS: FLAGYL TAB 500 MG PO SCH (09:23)
== END 2019-04-27 11:30 | disposition hospice, home (50) | DRG 949 ==
LOC: ICU 15:00 → MED/SURG 15:36
PROVIDERS: ADMIT Internal Medicine; ATTEND Internal Medicine
DX: I25.10 Atherosclerotic heart disease of native coronary artery without angina pectoris; R26.89 Other abnormalities of gait and mobility; R00.0 Tachycardia, unspecified; R06.02 Shortness of breath; I50.9 Heart failure, unspecified; R42 Dizziness and giddiness; G20 Parkinson's disease; I95.1 Orthostatic hypotension; I25.2 Old myocardial infarction; E87.1 Hypo-osmolality and hyponatremia; Z51.89 Encounter for other specified aftercare; R13.11 Dysphagia, oral phase; R53.1 Weakness; N39.0 Urinary tract infection, site not specified; I11.0 Hypertensive heart disease with heart failure; E86.0 Dehydration; K59.09 Other constipation; B96.81 Helicobacter pylori [H. pylori] as the cause of diseases classified elsewhere; A04.72 Enterocolitis due to Clostridium difficile, not specified as recurrent
CPT/HCPCS: 36415; 74000; 74018; 80053; 81001; 85025; 92526; 92610; 97110; 97112; 97116; 97162; 97166; 97530; 97535; A4222; C9113; S0028; S0030; J0744; J1650; J3420; J7030